=== PATIENT | male | born 1970 | race African-American/Black ===

== ENCOUNTER 2016-05-27 12:25 | Inpatient (IN) | payer OTHER ==
[2016-05-27 17:41] VITALS: BMI 34.9
--- NOTE | 2016-05-27 20:22 | HP ---
CIWA Score - CIWA Score Nausea/Vomitin-No Nausea/No Vomiting Muscle Tremors: 3 Anxiety: 4-Mod. Anxious/Guarded Agitation: 4-Moderately Restless Paroxysmal Sweats: 3 Orientation: 0-Oriented Tacttile Disturbances: 0-None Auditory Disturbances: 0-None Visual Disturbances: 0-None Headache: 2-Mild CIWA-Ar Total Score: 16 Admission ROS BHS - HPI Chief Complaint: C/O WITHDRAWAL SX'S. SEEKING DETOX TXMENT Allergies/Adverse Reactions: Allergies Allergy/AdvReac Type Severity Reaction Status Date / Time aspirin Allergy Severe Swelling Verified 05/27/16 17:52 fish derived Allergy Severe Hives Verified 05/27/16 17:52 History of Present Illness: 45 Y.O. MALE WITH ALCOHOL AND COCAINE DEP. ADMITTED TO DETOX TXMENT. CLIENT IS KNOWN TO [facility]. REPORTS LONGEST CLEAN TIME WAS 14 MONTHS WHILE IN A RESIDENTIAL PROGRAM. DENIES RECENT DETOX/ REHAB SERVICES. Exam Limitations: No Limitations - Ebola screening Have you traveled outside of the country in the last 21 days: No Have you had contact with anyone from an Ebola affected area: No Have you been sick,other than usual withdrawal symptoms: No Do you have a fever: No - Review of Systems Constitutional: Chills, Night Sweats, Changes in sleep, Weight Stable EENT: reports: No Symptoms Reported Respiratory: reports: No Symptoms reported Cardiac: reports: No Symptoms Reported GI: reports: No Symptoms Reported : reports: No Symptoms Reported Musculoskeletal: reports: No Symptoms Reported Integumentary: reports: Dryness Neuro: reports: No Symptoms reported Endocrine: reports: No Symptoms Reported Hematology: reports: No Symptoms Reported Psychiatric: reports: Anxious, Depressed Other Systems: Reviewed and Negative Patient History - Patient Medical History Hx Anemia: No Hx Asthma: No Hx Chronic Obstructive Pulmonary Disease (COPD): No Hx Cancer: No Hx Cardiac Disorders: No Hx Congestive Heart Failure: No Hx Hypertension: No Hx Hypercholesterolemia: No Hx Pacemaker: No HX Cerebrovascular Accident: No Hx Seizures: No Hx Dementia: No Hx Diabetes: No Hx Gastrointestinal Disorders: Yes (acid reflux.) Hx Liver Disease: No Hx Genitourinary Disorders: No Hx Sexually Transmitted Disorders: No Hx Renal Disease (ESRD): No Hx Thyroid Disease: No Hx Human Immunodeficiency Virus (HIV): Yes (ON MEDS) Hx Depression: Yes Hx Suicide Attempt: No Hx Bipolar Disorder: No Hx Schizophrenia: No - Patient Surgical History Past Surgical History: Yes Hx Breast Surgery: Yes (bilateral gynecomastia in 2002) Hx Breast Biopsy: No Hx Abdominal Surgery: No Hx Appendectomy: No Hx Cholecystectomy: No Hx Genitourinary Surgery: No Hx Section: No Hx Orthopedic Surgery: Yes (L hip lipoma removed in 2013) Anesthesia Reaction: No - PPD History Previous Implant?: Yes Documented Results: Negative w/o proof Implanted On Prior [facility] Admission?: Yes Date: 04/01/11 Results: negative PPD to be Administered?: Yes - Smoking Cessation Smoking history: Current every day smoker Have you smoked in the past 12 months: Yes Aproximately how many cigarettes per day: 20 Cigars Per Day: 0 Hx Chewing Tobacco Use: No Initiated information on smoking cessation: Yes 'Breaking Loose' booklet given: 05/27/16 - Substance & Tx. History Hx Alcohol Use: Yes Hx Substance Use: Yes Substance Use Type: Alcohol, Cocaine Hx Substance Use Treatment: Yes ([facility]) - Substances Abused Alcohol Route: Oral Frequency: Daily Amount used: 1/2 pint gin/6 pk beer Age of first use: 18 Date of Last Use: 05/26/16 Crack Route: Smoking Frequency: Daily Amount used: $100 Age of first use: 25 Date of Last Use: 05/26/16 Family Disease History - Family Disease History Family Disease History: CA: Father ( GASTRIC CA/ ALCOHOLISM) Admission Physical Exam BHS - Vital Signs Vital Signs: Vital Signs - 24 hr 05/27/16 17:39 Temperature 98.2 F Pulse Rate 76 Respiratory 18 Rate Blood Pressure 95/61 - Physical General Appearance: Yes: Appropriately Dressed, Anxious HEENTM: Yes: EOMI, Normocephalic, ENID, Pharynx Normal Respiratory: Yes: Chest Non-Tender, Lungs Clear, Normal Breath Sounds, No Respiratory Distress, No Accessory Muscle Use Neck: Yes: No masses,lesions,Nodules, Supple, Trachea in good position Breast: Yes: Breast Exam Deferred Cardiology: Yes: Regular Rhythm, Regular Rate, S1, S2 Abdominal: Yes: Normal Bowel Sounds, Non Tender, Soft Genitourinary: Yes: Within Normal Limits Back: Yes: Normal Inspection Musculoskeletal: Yes: full range of Motion, Gait Steady Extremities: Yes: Normal Capillary Refill, Normal Range of Motion, Non-Tender, Tremors Neurological: Yes: 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, Fully Oriented, Alert, Motor Strength 5/5 Integumentary: Yes: Dry, Warm Lymphatic: Yes: Within Normal Limits - Diagnostic (1) Alcohol dependence with uncomplicated withdrawal Current Visit: Yes Status: Chronic (2) Cocaine dependence, uncomplicated Current Visit: Yes Status: Chronic (3) Cannabis dependence, uncomplicated Current Visit: Yes Status: Chronic (4) GERD (gastroesophageal reflux disease) Current Visit: Yes Status: Chronic Qualifiers: Esophagitis presence: esophagitis presence not specified Qualified Code(s): K21.9 - Gastro-esophageal reflux disease without esophagitis (5) HIV (human immunodeficiency virus infection) Current Visit: Yes Status: Chronic (6) Nicotine dependence Current Visit: Yes Status: Chronic Qualifiers: Nicotine product type: cigarettes Substance use status: uncomplicated Qualified Code(s): F17.210 - Nicotine dependence, cigarettes, uncomplicated Cleared for Admission [facility] - Detox or Rehab [facility] Level of Care: Medically Managed Detox Regimen/Protocol: Librium S Breath Alcohol Content Breath Alcohol Content: 0 Urine Drug Screen - Results Drug Screen Negative: No Urine Drug Screen Results: THC-Marijuana, FABY-Cocaine, MET-Methamphetamine
[2016-05-27] MEDS ORDERED: MAGNESIUM CITRATE 300 ML BOTTLE PO PRN (20:31)
[2016-05-27] MEDS ORDERED: MAGNESIUM HYDROX 2400MG/30ML ORAL SUSPENSION 30 ML CUP PO PRN (20:31)
[2016-05-27] MEDS ORDERED: diphenhydrAMINE HCL 50 MG CAPSULE PO PRN (20:31)
[2016-05-27] MEDS ORDERED: NICOTINE POLACRILEX 2 MG GUM BC PRN (20:31)
[2016-05-27] MEDS ORDERED: LOPERAMIDE HCL 2 MG CAPSULE PO PRN (20:31)
[2016-05-27] MEDS ORDERED: P-EPHED 60MG/TRIPROLIDI 2.5MG TABLET PO PRN (20:31)
[2016-05-27] MEDS ORDERED: MAG HYDROX/AL HYDROX/SIMETH 30 ML UNIT-DOSE CUP PO PRN (20:31)
[2016-05-27] MEDS ORDERED: hydrOXYzine PAMOATE 50 MG CAPSULE (FP) PO PRN (20:31)
[2016-05-27] MEDS ORDERED: guaiFENesin/D-METHORPHAN HB 10 ML UNIT-DOSE CUPS PO PRN (20:31)
[2016-05-27] MEDS ORDERED: ACETAMINOPHEN 325 MG TABLET (FP) PO PRN (20:31)
[2016-05-27] MEDS ORDERED: MENTHOL/PHENOL 1 EACH UD MM PRN (20:31)
[2016-05-27] MEDS ORDERED: chlordiazePOXIDE HCL 25 MG CAPSULE PO PRN (20:31)
[2016-05-27] MEDS: chlordiazePOXIDE HCL 25 MG CAPSULE PO SCH (23:20)
[2016-05-27] MEDS: RANITIDINE HCL 150 MG TABLET (FP) PO SCH (23:20)
[2016-05-27] MEDS: THIAMINE HCL 100 MG TABLET (FP) PO SCH (23:21)
[2016-05-27 23:24] LABS: URINE APPEARANCE CLEAR; URINE BILIRUBIN NEGATIVE (NEGATIVE); URINE BLOOD NEGATIVE (NEGATIVE); URINE COLOR YELLOW; URINE GLUCOSE (UA) NEGATIVE (NEGATIVE); URINE KETONE TRACE (NEGATIVE); URINE LEUK ESTERASE NEGATIVE (NEGATIVE); URINE NITRITE NEGATIVE (NEGATIVE); URINE PROTEIN NEGATIVE (NEGATIVE); URINE UROBILINOGEN NEGATIVE E.U./dl (0.2-1.0)
[2016-05-27] MEDS: NICOTINE 21 MG/24 HOURS TOPICAL PATCH TD SCH (23:40)
[2016-05-28] MEDS: chlordiazePOXIDE HCL 25 MG CAPSULE PO SCH ×4 (05:56→22:22)
[2016-05-28 10:16] LABS: MCHC 33.2 g/dl (32.0-35.9); MEAN CELL VOLUME 90.2 fl (80-96); MEAN PLT VOLUME 8.8 fl (7.5-11.1); PLATELET COUNT 251 K/MM3 (134-434); RDW 14.5 % (11.9-15.9); WHITE BLOOD COUNT 4.7 K/mm3 (4.0-10.0)
[2016-05-28] MEDS: PRENATAL VITAMINS W/ FOLIC ACID TABLET (FP) PO SCH (10:38)
[2016-05-28] MEDS: NICOTINE 21 MG/24 HOURS TOPICAL PATCH TD SCH (10:39)
[2016-05-28 10:50] LABS: ALBUMIN 3.8 g/dl (3.4-5.0); BILIRUBIN,TOTAL 0.5 mg/dL (0.2-1.0); CALCIUM 8.9 mg/dL (8.5-10.1); COCKROFT - GAULT 87.7; CREATININE 1.7 mg/dL (0.7-1.3); TOT PROT 7.4 g/dl (6.4-8.2)
[2016-05-28] MEDS: AMMONIUM LACTATE 12% LOTION 225 GM BOTTLE TP SCH ×2 (11:30→22:26)
[2016-05-28] MEDS: EMTRICITAB/RILPIVIRINE/TENOFOV 1 EACH TABLET PO SCH (12:33)
--- NOTE | 2016-05-28 14:15 | PN ---
[facility] CIWA - CIWA Score Nausea/Vomitin-Mild Nausea/No Vomiting Muscle Tremors: 4-Moderate,w/Arms Extend Anxiety: 4-Mod. Anxious/Guarded Agitation: 1-Slight > Activity Paroxysmal Sweats: 3 Orientation: 0-Oriented Tacttile Disturbances: 2-Mild Itch/Numbness/Burn Auditory Disturbances: 2-Mild Harshness/Frighten Visual Disturbances: 0-None Headache: 0-None Present CIWA-Ar Total Score: 17 [facility] Progress Note (SOAP) Subjective: Tremors, Anxious, Yawning, Diarrhea, Interrupted sleep. Objective: PT. A & O X 3, OBSERVED AMBULATING ON UNIT. 05/28/16 14:13 Vital Signs Temperature 97.6 F 05/28/16 14:08 Pulse Rate 70 05/28/16 14:08 Respiratory Rate 20 05/28/16 14:08 Blood Pressure 93/44 05/28/16 14:08 O2 Sat by Pulse Oximetry (%) Laboratory Last Values WBC 4.7 K/mm3 (4.0-10.0) 05/28/16 06:00 RBC 4.84 M/mm3 (4.00-5.60) 05/28/16 06:00 Hgb 14.5 GM/dL (11.7-16.9) 05/28/16 06:00 Hct 43.7 % (35.4-49) 05/28/16 06:00 MCV 90.2 fl (80-96) 05/28/16 06:00 MCHC 33.2 g/dl (32.0-35.9) 05/28/16 06:00 RDW 14.5 % (11.9-15.9) 05/28/16 06:00 Plt Count 251 K/MM3 (134-434) D 05/28/16 06:00 MPV 8.8 fl (7.5-11.1) 05/28/16 06:00 Sodium 142 mmol/L (136-145) 05/28/16 06:00 Potassium 3.8 mmol/L (3.5-5.1) 05/28/16 06:00 Chloride 107 mmol/L (98-107) 05/28/16 06:00 Carbon Dioxide 25 mmol/L (21-32) 05/28/16 06:00 Anion Gap 10 (8-16) 05/28/16 06:00 BUN 14 mg/dL (7-18) 05/28/16 06:00 Creatinine 1.7 mg/dL (0.7-1.3) H D 05/28/16 06:00 Creat Clearance w eGFR 44.21 (>60) 05/28/16 06:00 Random Glucose 87 mg/dL (74-106) 05/28/16 06:00 Calcium 8.9 mg/dL (8.5-10.1) 05/28/16 06:00 Total Bilirubin 0.5 mg/dL (0.2-1.0) 05/28/16 06:00 AST 16 U/L (15-37) D 05/28/16 06:00 ALT 19 U/L (12-78) D 05/28/16 06:00 Alkaline Phosphatase 73 U/L (45-117) 05/28/16 06:00 Total Protein 7.4 g/dl (6.4-8.2) 05/28/16 06:00 Albumin 3.8 g/dl (3.4-5.0) 05/28/16 06:00 Urine Color Yellow 05/27/16 21:59 Urine Appearance Clear 05/27/16 21:59 Urine pH 5.0 (5.0-8.0) 05/27/16 21:59 Ur Specific [place] 1.034 (1.001-1.035) 05/27/16 21:59 Urine Protein Negative (NEGATIVE) 05/27/16 21:59 Urine Glucose (UA) Negative (NEGATIVE) 05/27/16 21:59 Urine Ketones Trace (NEGATIVE) H 05/27/16 21:59 Urine Blood Negative (NEGATIVE) 05/27/16 21:59 Urine Nitrite Negative (NEGATIVE) 05/27/16 21:59 Urine Bilirubin Negative (NEGATIVE) 05/27/16 21:59 Urine Urobilinogen Negative E.U./dl (0.2-1.0) 05/27/16 21:59 Ur Leukocyte Esterase Negative (NEGATIVE) 05/27/16 21:59 LABS NOTED. Assessment: 05/28/16 14:14 WITHDRAWAL SYMPTOMS. Plan: CONTINUE DETOX. INCREASE PO FLUIDS. ADVISED PATIENT TO FOLLOW-UP WITH [facility] / REHAB MEDICAL PROVIDER AFTER DISCHARGE FROM DETOX FOR GENERAL MEDICAL ASSESSMENT AND ANY ABNORMAL ADMISSION LAB VALUES.
--- NOTE | 2016-05-28 16:13 | EKG ---
Test Reason : Blood Pressure : / mmHG Vent. Rate : 063 BPM Atrial Rate : 063 BPM P-R Int : 146 ms QRS Dur : 084 ms QT Int : 414 ms P-R-T Axes : 042 067 042 degrees QTc Int : 423 ms NORMAL SINUS RHYTHM CANNOT RULE OUT ANTERIOR INFARCT , AGE UNDETERMINED ABNORMAL ECG NO PREVIOUS ECGS AVAILABLE Confirmed by HEATHER PRADHAN, WELLINGTON ([id number]) on 05/28/2016 4:13:19 PM Referred By: Shahid Garber Confirmed By:WELLINGTON ROMERO MD
--- NOTE | 2016-05-28 16:33 | CONSULT ---
[facility] Psychiatric Consult - Data Date of interview: 05/28/16 Admission source: [facility] Identifying data: First admission to [facility] for this 45 y/o male seeking detox for alcohol and cocaine depenednce (tox screen is positive for cannabis and amphetamines).Patient is single without children,domiciled,unemployed and supported on Public Assistance. Substance Abuse History: Urine Drug Screen Results: FABY-Cocaine, OPI-Opiates, BZO-Benzodiazepines, MTD-Methadone, TCA-Tricyclic Antidepressant.Noted. - Smoking Cessation. Smoking history: Current every day smoker. Have you smoked in the past 12 months: Yes. Aproximately how many cigarettes per day: 20. Cigars Per Day: 0. Hx Chewing Tobacco Use: No. Initiated information on smoking cessation: Yes. 'Breaking Loose' booklet given: 05/27/16. - Substance & Tx. History. Hx Alcohol Use: Yes. Hx Substance Use: Yes. Substance Use Type : Alcohol, Cocaine. Hx Substance Use Treatment: Yes ([facility]). - Substances Abused. Alcohol. Route: Oral. Frequency: Daily. Amount used: 1 /2 pint gin/6 pk beer. Age of first use: 18. Date of Last Use: 05/26/16. Crack. Route: Smoking. Frequency: Daily. Amount used: $100. Age of first use : 25. Date of Last Use: 05/26/16. Confirmed by patient. Medical History: GERD and HIV infection. Psychiatric History: Diagnosed with MDD in 1998 at [facility].Prescribed vistaril 50 mg/hs + lexapro 20 mg/day + trazodone 50 mg/ hs.Mr Jennings gets outpatient psychiatric services at the [facility] in the [place].Patient denies history of suicide attempts. Physical/Sexual Abuse/Trauma History: No history. Additional Comment: Urine Drug Screen Results: THC-Marijuana, FABY-Cocaine, MET- Methamphetamine.Noted. Mental Status Exam - Mental Status Exam Alert and Oriented to: Time, Place, Person Cognitive Function: Good Patient Appearance: Well Groomed Mood: Hopeful, Euthymic Affect: Appropriate, Normal Range Patient Behavior: Appropriate, Cooperative Speech Pattern: Clear, Appropriate Voice Loudness: Normal Thought Process: Intact, Goal Oriented Thought Disorder: Not Present Hallucinations: Denies Suicidal Ideation: Denies Homicidal Ideation: Denies Insight/Judgement: Poor Appetite: Good Muscle strength/Tone: Normal Gait/Station: Normal Psychiatric Findings - Problem List (Doyle 1, 2,3) (1) Alcohol dependence with uncomplicated withdrawal Current Visit: Yes Status: Acute (2) Cannabis dependence, uncomplicated Current Visit: Yes Status: Acute (3) Cocaine dependence, uncomplicated Current Visit: Yes Status: Acute (4) Nicotine dependence Current Visit: Yes Status: Acute Qualifiers: Nicotine product type: cigarettes Substance use status: uncomplicated Qualified Code(s): F17.210 - Nicotine dependence, cigarettes, uncomplicated (5) Amphetamine abuse Current Visit: Yes Status: Acute (6) Substance induced mood disorder Current Visit: Yes Status: Acute (7) MDD (major depressive disorder) Current Visit: Yes Status: Chronic Comment: Self-report. - Initial Treatment Plan Initial Treatment Plan: Psychoeducation.Detoxification.Medications : vistaril 50 mg po hs + trazodone 50 mg po hs + lexapro 20 mg po daily.Side effects/ benefits discussed with patient,including the risk for priapism (trazodone).Mr Jennings is advised to watch for abnormal erectile phenomena (painful/prolonged erection) and stop trazodone/seek immediate medical assistance.Patient is in agreement with this careplan.Observation.
[2016-05-28] MEDS: hydrOXYzine PAMOATE 50 MG CAPSULE (FP) PO SCH (22:21)
[2016-05-28] MEDS: traZODone HCL 50 MG TABLET (FP) PO SCH (22:21)
[2016-05-28] MEDS: RANITIDINE HCL 150 MG TABLET (FP) PO SCH (22:21)
[2016-05-28] MEDS: THIAMINE HCL 100 MG TABLET (FP) PO SCH (22:21)
[2016-05-29] MEDS: chlordiazePOXIDE HCL 25 MG CAPSULE PO SCH ×3 (05:59→18:05)
[2016-05-29] MEDS: EMTRICITAB/RILPIVIRINE/TENOFOV 1 EACH TABLET PO SCH (10:17)
[2016-05-29] MEDS: NICOTINE 21 MG/24 HOURS TOPICAL PATCH TD SCH (10:17)
[2016-05-29] MEDS: ESCITALOPRAM OXALATE 20 MG TABLET (FP) PO SCH (10:17)
[2016-05-29] MEDS: PRENATAL VITAMINS W/ FOLIC ACID TABLET (FP) PO SCH (10:17)
[2016-05-29] MEDS: AMMONIUM LACTATE 12% LOTION 225 GM BOTTLE TP SCH ×2 (10:20→22:24)
--- NOTE | 2016-05-29 13:46 | PN ---
S CIWA - CIWA Score Nausea/Vomitin Muscle Tremors: 4-Moderate,w/Arms Extend Anxiety: 4-Mod. Anxious/Guarded Agitation: 2 Paroxysmal Sweats: No Perspiration Orientation: 0-Oriented Tacttile Disturbances: 1-Very Mild Itch/Numbness Auditory Disturbances: 0-None Visual Disturbances: 0-None Headache: 2-Mild CIWA-Ar Total Score: 16 [facility] Progress Note (SOAP) Subjective: Anxious, restless, sweating, tremor, interrupted sleep Objective: 05/29/16 13:40 Last Vital Signs Temp Pulse Resp BP Pulse Ox 97.3 F L 83 18 112/68 05/29/16 10:00 05/29/16 10:00 05/29/16 10:00 05/29/16 10:00 Laboratory Tests 05/27/16 05/28/16 05/28/16 21:59 06:00 06:00 WBC 4.7 RBC 4.84 Hgb 14.5 Hct 43.7 MCV 90.2 MCHC 33.2 RDW 14.5 Plt Count 251 D MPV 8.8 Sodium 142 Potassium 3.8 Chloride 107 Carbon Dioxide 25 Anion Gap 10 BUN 14 Creatinine 1.7 H D Creat Clearance w eGFR 44.21 Random Glucose 87 Calcium 8.9 Total Bilirubin 0.5 AST 16 D ALT 19 D Alkaline Phosphatase 73 Total Protein 7.4 Albumin 3.8 Urine Color Yellow Urine Appearance Clear Urine pH 5.0 Ur Specific [place] 1.034 Urine Protein Negative Urine Glucose (UA) Negative Urine Ketones Trace H Urine Blood Negative Urine Nitrite Negative Urine Bilirubin Negative Urine Urobilinogen Negative Ur Leukocyte Esterase Negative RPR Titer 05/28/16 06:00 WBC RBC Hgb Hct MCV MCHC RDW Plt Count MPV Sodium Potassium Chloride Carbon Dioxide Anion Gap BUN Creatinine Creat Clearance w eGFR Random Glucose Calcium Total Bilirubin AST ALT Alkaline Phosphatase Total Protein Albumin Urine Color Urine Appearance Urine pH Ur Specific [place] Urine Protein Urine Glucose (UA) Urine Ketones Urine Blood Urine Nitrite Urine Bilirubin Urine Urobilinogen Ur Leukocyte Esterase RPR Titer Nonreactive Labs noted: serum creatinine 1.7, GFR 44.21, BUN 14 Assessment: 05/29/16 13:43 Withdrawal symptoms Noted with MELANIE most likely secondary to dehydration Plan: Continue detox MELANIE secondary to dehydration: encouraged to drink lots of water, give water pitcher, repeat BMP in AM Patient requesting inpatient rehab post detox
[2016-05-29] MEDS: MAG HYDROX/AL HYDROX/SIMETH 30 ML UNIT-DOSE CUP PO PRN (19:12)
[2016-05-29] MEDS: traZODone HCL 50 MG TABLET (FP) PO SCH (22:23)
[2016-05-29] MEDS: THIAMINE HCL 100 MG TABLET (FP) PO SCH (22:23)
[2016-05-29] MEDS: RANITIDINE HCL 150 MG TABLET (FP) PO SCH (22:24)
[2016-05-29] MEDS: chlordiazePOXIDE 5 MG CAPSULE PO SCH (22:24)
[2016-05-29] MEDS: hydrOXYzine PAMOATE 50 MG CAPSULE (FP) PO SCH (22:24)
[2016-05-30] MEDS: chlordiazePOXIDE 5 MG CAPSULE PO SCH ×3 (05:33→17:37)
[2016-05-30 10:11] LABS: COCKROFT - GAULT 106.5; CREATININE 1.4 mg/dL (0.7-1.3)
[2016-05-30 10:14] LABS: CALCIUM 9.8 mg/dL (8.5-10.1)
--- NOTE | 2016-05-30 10:16 | PN ---
S Progress Note (SOAP) Subjective: ALERT,IRRITABLE,ANXIOUS,INTERRUPTED SLEEP, Objective: 05/30/16 10:15 Vital Signs Temperature 95.5 F L 05/30/16 09:40 Pulse Rate 86 05/30/16 09:40 Respiratory Rate 18 05/30/16 09:40 Blood Pressure 126/90 05/30/16 09:40 O2 Sat by Pulse Oximetry (%) Assessment: 05/30/16 10:15 WITHDRAWAL SYMPTOM Plan: CONTINUE DETOX,ENCOURAGE ORAL FLUID,REPEAT BMP PENDING,DISCHARGE IN AM
[2016-05-30] MEDS: EMTRICITAB/RILPIVIRINE/TENOFOV 1 EACH TABLET PO SCH (10:17)
[2016-05-30] MEDS: ESCITALOPRAM OXALATE 20 MG TABLET (FP) PO SCH (10:17)
[2016-05-30] MEDS: PRENATAL VITAMINS W/ FOLIC ACID TABLET (FP) PO SCH (10:17)
[2016-05-30] MEDS: NICOTINE 21 MG/24 HOURS TOPICAL PATCH TD SCH (10:18)
[2016-05-30] MEDS: AMMONIUM LACTATE 12% LOTION 225 GM BOTTLE TP SCH ×2 (10:20→23:37)
[2016-05-30] MEDS: MAG HYDROX/AL HYDROX/SIMETH 30 ML UNIT-DOSE CUP PO PRN (15:18)
[2016-05-30] MEDS ORDERED: hydrOXYzine PAMOATE 50 MG CAPSULE (FP) PO PRN (21:57)
[2016-05-30] MEDS ORDERED: traZODone HCL 50 MG TABLET (FP) PO SCH (22:00)
[2016-05-30] MEDS ORDERED: RANITIDINE HCL 150 MG TABLET (FP) PO SCH (22:00)
[2016-05-30] MEDS ORDERED: THIAMINE HCL 100 MG TABLET (FP) PO SCH (22:00)
[2016-05-30] MEDS: hydrOXYzine PAMOATE 50 MG CAPSULE (FP) PO SCH (22:18)
[2016-05-30] MEDS ORDERED: chlordiazePOXIDE HCL 10 MG CAPSULE PO SCH (23:00)
[2016-05-31] MEDS: chlordiazePOXIDE HCL 10 MG CAPSULE PO SCH ×3 (05:22→10:26)
--- NOTE | 2016-05-31 07:58 | PN ---
S Progress Note (SOAP) Subjective: ALERT,NO COMPLAINT Objective: 05/31/16 07:56 Vital Signs Temperature 98.1 F 05/31/16 06:00 Pulse Rate 81 05/31/16 06:00 Respiratory Rate 18 05/31/16 06:00 Blood Pressure 106/62 05/31/16 06:00 O2 Sat by Pulse Oximetry (%) Assessment: 05/31/16 07:56 DETOX COMPLETED,NO WITHDRAWAL SYMPTOM Plan: DISCHARGE TODAY,FOLLOW UP WITH AFTER CARE PROGRAM ARRANGEMENT
--- NOTE | 2016-05-31 08:03 | DS ---
[facility] Detox Discharge Summary Admission Date: 05/27/16 Discharge Date: 05/31/16 - History Present History: Alcohol Dependence, Cannabis Dependence, Cocaine Dependence Additional Comments: FOLLOW UP WITH AFTER [facility] PROGRAM ARRANGEMENT AND PMD FOR MEDIAL PROBLEM Pertinent Past History: GERD HIV NICOTINE DEPENDENCE DEPRESSION - Physical Exam Results Vital Signs: Vital Signs Temperature 98.1 F 05/31/16 06:00 Pulse Rate 81 05/31/16 06:00 Respiratory Rate 18 05/31/16 06:00 Blood Pressure 106/62 05/31/16 06:00 O2 Sat by Pulse Oximetry (%) Pertinent Admission Physical Exam Findings: WITHDRAWAL SYMPTOM - Treatment Hospital Course: Detox Protocol Followed, Detoxed Safely, Responded well, Discharged Condition Good, Rehab Referral Accepted Patient has Accepted a Rehab Referral to: [facility] - Medication Discharge Medications: Ambulatory Orders Emtricitab/Rilpivirine/Tenofov [Complera -] 1 each PO DAILY 05/27/16 Escitalopram Oxalate [Lexapro -] 20 mg PO DAILY 05/27/16 Hydroxyzine Pamoate [Vistaril -] 50 mg PO HS 05/27/16 Multivitamin [Poly-Vitamin] 1 each PO DAILY 05/27/16 Ranitidine [Zantac -] 300 mg PO HS 05/27/16 Trazodone HCl [Desyrel -] 50 mg PO HS 05/27/16 Escitalopram Oxalate [Lexapro -] 20 mg PO DAILY #30 tablet 05/28/16 Hydroxyzine Pamoate [Vistaril -] 50 mg PO HS #30 capsule 05/28/16 Trazodone HCl [Desyrel -] 50 mg PO HS #30 tablet 05/28/16 - Diagnosis (1) Alcohol dependence with uncomplicated withdrawal Current Visit: Yes Status: Acute (2) Cannabis dependence, uncomplicated Current Visit: Yes Status: Acute (3) Cocaine dependence, uncomplicated Current Visit: Yes Status: Acute (4) Nicotine dependence Current Visit: Yes Status: Acute Qualifiers: Nicotine product type: cigarettes Substance use status: uncomplicated Qualified Code(s): F17.210 - Nicotine dependence, cigarettes, uncomplicated (5) GERD (gastroesophageal reflux disease) Current Visit: Yes Status: Chronic Qualifiers: Esophagitis presence: esophagitis presence not specified Qualified Code(s): K21.9 - Gastro-esophageal reflux disease without esophagitis (6) HIV (human immunodeficiency virus infection) Current Visit: Yes Status: Chronic (7) MDD (major depressive disorder) Current Visit: Yes Status: Chronic - AMA Did Patient Leave Against Medical Advice: No
[2016-05-31 09:41] VITALS: BP 118/67; PULSE 92; TEMP 96.1
[2016-05-31] MEDS ORDERED: ESCITALOPRAM OXALATE 20 MG TABLET (FP) PO SCH (10:00)
[2016-05-31] MEDS: EMTRICITAB/RILPIVIRINE/TENOFOV 1 EACH TABLET PO SCH (10:25)
[2016-05-31] MEDS: PRENATAL VITAMINS W/ FOLIC ACID TABLET (FP) PO SCH (10:25)
[2016-05-31] MEDS: AMMONIUM LACTATE 12% LOTION 225 GM BOTTLE TP SCH (10:25)
[2016-05-31] MEDS: NICOTINE 21 MG/24 HOURS TOPICAL PATCH TD SCH (10:26)
== END 2016-05-31 12:35 | disposition other institution (70) | DRG 774 ==
LOC: YASAS 12:25 → Y6N 19:26 → UNDODISIN 05-30 15:50
PROVIDERS: ADMIT Internal Medicine; ATTEND Internal Medicine
PROC: HZ2ZZZZ Detoxification Services for Substance Abuse Treatment (ICD-10-PCS; principal; 2016-05-31)
DX: F10.230 Alcohol dependence with withdrawal, uncomplicated (principal); F14.20 Cocaine dependence, uncomplicated; F12.20 Cannabis dependence, uncomplicated; F17.210 Nicotine dependence, cigarettes, uncomplicated; F15.10 Other stimulant abuse, uncomplicated; F33.9 Major depressive disorder, recurrent, unspecified; F19.24 Other psychoactive substance dependence with psychoactive substance-induced mood disorder; Z21 Asymptomatic human immunodeficiency virus [HIV] infection status; K21.9 Gastro-esophageal reflux disease without esophagitis
CPT/HCPCS: 36415; 80048; 80053; 81003; 85027; 86593; 93005; 93010

== ENCOUNTER 2016-05-31 13:36 | Inpatient (IN) | payer OTHER ==
--- NOTE | 2016-05-31 17:35 | HP ---
[facility] Rehab Assess/Revision - Admission History Admitted to Rehab from: [facility] Date of Admission to Rehab: 05/31/16 - Vital signs Vital Signs: Vital Signs Period Temp Pulse Resp BP Sys/Ell[place] Pulse Ox Last 24 Hr 97.9 F 85 18 114/69 - Findings Detox History & Physical reviewed: Yes Concur with findings: Yes Comments/Additional Findings: transferred from detox to rehab admission as per protocol
[2016-05-31] MEDS ORDERED: MAGNESIUM CITRATE 300 ML BOTTLE PO PRN (18:08)
[2016-05-31] MEDS ORDERED: MENTHOL/PHENOL 1 EACH UD MM PRN (18:08)
[2016-05-31] MEDS ORDERED: IBUPROFEN 400 MG TABLET (FP) PO PRN (18:08)
[2016-05-31] MEDS ORDERED: NICOTINE POLACRILEX 2 MG GUM BUC PRN (18:08)
[2016-05-31] MEDS ORDERED: diphenhydrAMINE HCL 50 MG CAPSULE PO PRN (18:08)
[2016-05-31] MEDS ORDERED: LOPERAMIDE HCL 2 MG CAPSULE PO PRN (18:08)
[2016-05-31] MEDS ORDERED: P-EPHED 60MG/TRIPROLIDI 2.5MG TABLET PO PRN (18:08)
[2016-05-31] MEDS ORDERED: MAGNESIUM HYDROX 2400MG/30ML ORAL SUSPENSION 30 ML CUP PO PRN (18:08)
[2016-05-31] MEDS: MAG HYDROX/AL HYDROX/SIMETH 30 ML UNIT-DOSE CUP PO PRN (18:27)
[2016-05-31] MEDS ORDERED: NICOTINE 14 MG/24 HOURS TOPICAL PATCH TD PRN (18:30)
[2016-05-31] MEDS: THIAMINE HCL 100 MG TABLET (FP) PO SCH (21:13)
[2016-05-31] MEDS: traZODone HCL 50 MG TABLET (FP) PO SCH (21:13)
[2016-05-31] MEDS: RANITIDINE HCL 150 MG TABLET (FP) PO SCH (21:54)
[2016-06-01] MEDS: ESCITALOPRAM OXALATE 20 MG TABLET (FP) PO SCH (09:52)
[2016-06-01] MEDS: PRENATAL VITAMINS W/ FOLIC ACID TABLET (FP) PO SCH (09:52)
[2016-06-01] MEDS: EMTRICITAB/RILPIVIRINE/TENOFOV 1 EACH TABLET PO SCH (09:53)
[2016-06-01] MEDS ORDERED: hydrOXYzine PAMOATE 50 MG CAPSULE (FP) PO PRN (11:43)
--- NOTE | 2016-06-01 11:49 | HP ---
Psychiatrist Admission - Data Date of interview: 06/01/16 Admission source: [facility] Identifying data: This is the third [facility] inpatient rehabilitation admission for this 45 year old single male without children, he is domiciled, and unemployed and supported on HASA/Public Assistance. Medical History: HIV+ since 1998, GERD. Smokes cigarettes 1 PPD. Psychiatric History: Reports carries a diagnosis of MDD, first psychiatric hospitalization in 1998 to [facility] in [place] to address depression, reports admitted for 14 days, treated with paxil which was changed to welllbutrin due to the side effects. Reports was admitted to [facility] most recently to [facility] for 2 weeks to address depression, reports he was drinking and using drugs and not taking his medications. He currently on the following medications: vistaril 50 mg/hs, lexapro 20 mg/day and trazodone 50 mg/hs. Patient reports gets outpatient psychiatric services at the [facility] in the [place] and sees the psychiatrist . Physical/Sexual Abuse/Trauma History: Denies history of sexual, physical and verbal abuse. Vital Signs: Vital Signs - 24 hr 05/31/16 06/01/16 06/01/16 13:30 00:31 03:30 Temperature 97.9 F Pulse Rate 85 Respiratory 18 18 18 Rate Blood Pressure 114/69 06/01/16 07:32 Temperature 97.8 F Pulse Rate 74 Respiratory 18 Rate Blood Pressure 141/74 Allergies/Adverse Reactions: Allergies Allergy/AdvReac Type Severity Reaction Status Date / Time aspirin Allergy Severe Swelling Verified 05/27/16 17:52 fish derived Allergy Severe Hives Verified 05/27/16 17:52 Date of last physical exam: 05/27/16 Concur with the findings of this exam: Yes - Substance Abuse/Tx History Hx Alcohol Use: Yes (6 pck beer daily, 1/2 gin daily) Hx Substance Use: Yes Substance Use Type: Cocaine ($50 daily ), Marijuana ("sometimes") Hx Substance Use Treatment: Yes ([facility] in [place] 9 months) - Admission Criteria Previous failed treatment: Yes Poor recovery environment: Yes Comorbidities: Yes Lacks judgement: Yes Mental Status Exam - Mental Status Exam Alert and Oriented to: Time, Place, Person Cognitive Function: Good Patient Appearance: Well Groomed Mood: Hopeful Affect: Appropriate, Mood Congruent Patient Behavior: Appropriate, Cooperative Speech Pattern: Clear, Appropriate Voice Loudness: Normal Thought Process: Intact, Goal Oriented Thought Disorder: Not Present Hallucinations: Denies Suicidal Ideation: Denies Homicidal Ideation: Denies Insight/Judgement: Fair Sleep: Fair Appetite: Fair Muscle strength/Tone: Normal Gait/Station: Normal Psychiatric Findings - Problem List ([place]era 1, 2,3) (1) Alcohol dependence Current Visit: Yes Status: Acute (2) Cannabis dependence, uncomplicated Current Visit: Yes Status: Acute (3) Nicotine dependence Current Visit: Yes Status: Acute Qualifiers: Nicotine product type: cigarettes Substance use status: uncomplicated Qualified Code(s): F17.210 - Nicotine dependence, cigarettes, uncomplicated (4) HIV (human immunodeficiency virus infection) Current Visit: Yes Status: Chronic (5) MDD (major depressive disorder) Current Visit: Yes Status: Chronic Comment: Self-report. - Initial Treatment Plan Initial Treatment Plan: Will continue his current medications, monitor progress as needed.
[2016-06-01] MEDS: hydrOXYzine PAMOATE 50 MG CAPSULE (FP) PO SCH (21:45)
[2016-06-01] MEDS: traZODone HCL 50 MG TABLET (FP) PO SCH (21:45)
[2016-06-01] MEDS: RANITIDINE HCL 150 MG TABLET (FP) PO SCH (21:45)
[2016-06-01] MEDS: THIAMINE HCL 100 MG TABLET (FP) PO SCH (21:45)
[2016-06-02] MEDS: EMTRICITAB/RILPIVIRINE/TENOFOV 1 EACH TABLET PO SCH (10:00)
[2016-06-02] MEDS: PRENATAL VITAMINS W/ FOLIC ACID TABLET (FP) PO SCH (10:00)
[2016-06-02] MEDS: ESCITALOPRAM OXALATE 20 MG TABLET (FP) PO SCH (10:00)
[2016-06-02] MEDS: MAG HYDROX/AL HYDROX/SIMETH 30 ML UNIT-DOSE CUP PO PRN (18:30)
[2016-06-02] MEDS: THIAMINE HCL 100 MG TABLET (FP) PO SCH (21:50)
[2016-06-02] MEDS: traZODone HCL 50 MG TABLET (FP) PO SCH (21:50)
[2016-06-02] MEDS: RANITIDINE HCL 150 MG TABLET (FP) PO SCH (21:50)
[2016-06-02] MEDS: hydrOXYzine PAMOATE 50 MG CAPSULE (FP) PO SCH (21:50)
[2016-06-02] MEDS: TOLNAFTATE 1% CREAM 15 GM TUBE TP SCH (21:52)
[2016-06-02] MEDS: AMMONIUM LACTATE 12% LOTION 225 GM BOTTLE TP PRN (22:06)
[2016-06-03] MEDS: ACETAMINOPHEN 325 MG TABLET (FP) PO PRN (06:22)
[2016-06-03] MEDS: COLLOIDAL OATMEAL 1 BAR EACH TP PRN (06:22)
[2016-06-03] MEDS: EMTRICITAB/RILPIVIRINE/TENOFOV 1 EACH TABLET PO SCH (09:46)
[2016-06-03] MEDS: PRENATAL VITAMINS W/ FOLIC ACID TABLET (FP) PO SCH (09:46)
[2016-06-03] MEDS: ESCITALOPRAM OXALATE 20 MG TABLET (FP) PO SCH (09:46)
[2016-06-03] MEDS: TOLNAFTATE 1% CREAM 15 GM TUBE TP SCH ×2 (09:47→21:15)
[2016-06-03 12:14] LABS: HIV 1 AGp24 NEGATIVE
[2016-06-03 12:17] LABS: HIV 1 & 2 AB PRELIMINARY POSITIVE
[2016-06-03] MEDS: THIAMINE HCL 100 MG TABLET (FP) PO SCH (21:14)
[2016-06-03] MEDS: hydrOXYzine PAMOATE 50 MG CAPSULE (FP) PO SCH (21:15)
[2016-06-03] MEDS: traZODone HCL 50 MG TABLET (FP) PO SCH (21:15)
[2016-06-03] MEDS: RANITIDINE HCL 150 MG TABLET (FP) PO SCH (21:15)
[2016-06-04] MEDS: ESCITALOPRAM OXALATE 20 MG TABLET (FP) PO SCH (10:33)
[2016-06-04] MEDS: EMTRICITAB/RILPIVIRINE/TENOFOV 1 EACH TABLET PO SCH (10:33)
[2016-06-04] MEDS: ACETAMINOPHEN 325 MG TABLET (FP) PO PRN (10:33)
[2016-06-04] MEDS: PRENATAL VITAMINS W/ FOLIC ACID TABLET (FP) PO SCH (10:33)
[2016-06-04] MEDS: TOLNAFTATE 1% CREAM 15 GM TUBE TP SCH ×2 (10:34→21:40)
[2016-06-04] MEDS: RANITIDINE HCL 150 MG TABLET (FP) PO SCH (21:39)
[2016-06-04] MEDS: traZODone HCL 50 MG TABLET (FP) PO SCH (21:39)
[2016-06-04] MEDS: hydrOXYzine PAMOATE 50 MG CAPSULE (FP) PO SCH (21:39)
[2016-06-04] MEDS: THIAMINE HCL 100 MG TABLET (FP) PO SCH (21:39)
[2016-06-05] MEDS: PRENATAL VITAMINS W/ FOLIC ACID TABLET (FP) PO SCH (10:39)
[2016-06-05] MEDS: EMTRICITAB/RILPIVIRINE/TENOFOV 1 EACH TABLET PO SCH (10:39)
[2016-06-05] MEDS: ESCITALOPRAM OXALATE 20 MG TABLET (FP) PO SCH (10:39)
[2016-06-05] MEDS: TOLNAFTATE 1% CREAM 15 GM TUBE TP SCH ×2 (10:40→21:14)
[2016-06-05] MEDS: THIAMINE HCL 100 MG TABLET (FP) PO SCH (21:12)
[2016-06-05] MEDS: hydrOXYzine PAMOATE 50 MG CAPSULE (FP) PO SCH (21:12)
[2016-06-05] MEDS: RANITIDINE HCL 150 MG TABLET (FP) PO SCH (21:12)
[2016-06-05] MEDS: MAG HYDROX/AL HYDROX/SIMETH 30 ML UNIT-DOSE CUP PO PRN (21:13)
[2016-06-05] MEDS: traZODone HCL 50 MG TABLET (FP) PO SCH (21:13)
[2016-06-06] MEDS: COLLOIDAL OATMEAL 1 BAR EACH TP PRN (07:26)
[2016-06-06] MEDS: ESCITALOPRAM OXALATE 20 MG TABLET (FP) PO SCH (10:56)
[2016-06-06] MEDS: EMTRICITAB/RILPIVIRINE/TENOFOV 1 EACH TABLET PO SCH (10:56)
[2016-06-06] MEDS: PRENATAL VITAMINS W/ FOLIC ACID TABLET (FP) PO SCH (10:56)
[2016-06-06] MEDS: TOLNAFTATE 1% CREAM 15 GM TUBE TP SCH ×2 (10:56→23:26)
[2016-06-06] MEDS: THIAMINE HCL 100 MG TABLET (FP) PO SCH (21:46)
[2016-06-06] MEDS: traZODone HCL 50 MG TABLET (FP) PO SCH (21:46)
[2016-06-06] MEDS: hydrOXYzine PAMOATE 50 MG CAPSULE (FP) PO SCH (21:46)
[2016-06-06] MEDS: RANITIDINE HCL 150 MG TABLET (FP) PO SCH (21:46)
[2016-06-07] MEDS: PRENATAL VITAMINS W/ FOLIC ACID TABLET (FP) PO SCH (09:55)
[2016-06-07] MEDS: EMTRICITAB/RILPIVIRINE/TENOFOV 1 EACH TABLET PO SCH (09:55)
[2016-06-07] MEDS: TOLNAFTATE 1% CREAM 15 GM TUBE TP SCH ×2 (09:56→21:13)
[2016-06-07] MEDS: ESCITALOPRAM OXALATE 20 MG TABLET (FP) PO SCH (09:56)
[2016-06-07] MEDS: MAG HYDROX/AL HYDROX/SIMETH 30 ML UNIT-DOSE CUP PO PRN (18:06)
[2016-06-07] MEDS: ACETAMINOPHEN 325 MG TABLET (FP) PO PRN (18:06)
[2016-06-07] MEDS: THIAMINE HCL 100 MG TABLET (FP) PO SCH (21:12)
[2016-06-07] MEDS: guaiFENesin/D-METHORPHAN HB 10 ML UNIT-DOSE CUPS PO PRN (21:12)
[2016-06-07] MEDS: traZODone HCL 50 MG TABLET (FP) PO SCH (21:13)
[2016-06-07] MEDS: RANITIDINE HCL 150 MG TABLET (FP) PO SCH (21:13)
[2016-06-07] MEDS: hydrOXYzine PAMOATE 50 MG CAPSULE (FP) PO SCH (21:13)
[2016-06-08] MEDS: guaiFENesin/D-METHORPHAN HB 10 ML UNIT-DOSE CUPS PO PRN ×3 (07:29→21:40)
[2016-06-08] MEDS: ESCITALOPRAM OXALATE 20 MG TABLET (FP) PO SCH (10:01)
[2016-06-08] MEDS: EMTRICITAB/RILPIVIRINE/TENOFOV 1 EACH TABLET PO SCH (10:01)
[2016-06-08] MEDS: PRENATAL VITAMINS W/ FOLIC ACID TABLET (FP) PO SCH (10:01)
[2016-06-08] MEDS: TOLNAFTATE 1% CREAM 15 GM TUBE TP SCH ×2 (10:02→21:40)
[2016-06-08] MEDS: ACETAMINOPHEN 325 MG TABLET (FP) PO PRN ×2 (10:02→17:30)
[2016-06-08] MEDS: AMMONIUM LACTATE 12% LOTION 225 GM BOTTLE TP PRN (17:05)
[2016-06-08] MEDS: RANITIDINE HCL 150 MG TABLET (FP) PO SCH (21:39)
[2016-06-08] MEDS: hydrOXYzine PAMOATE 50 MG CAPSULE (FP) PO SCH (21:39)
[2016-06-08] MEDS: traZODone HCL 50 MG TABLET (FP) PO SCH (21:39)
[2016-06-08] MEDS: THIAMINE HCL 100 MG TABLET (FP) PO SCH (21:40)
[2016-06-09] MEDS: guaiFENesin/D-METHORPHAN HB 10 ML UNIT-DOSE CUPS PO PRN ×2 (06:21→16:35)
[2016-06-09] MEDS: ACETAMINOPHEN 325 MG TABLET (FP) PO PRN ×2 (06:21→16:35)
[2016-06-09] MEDS: EMTRICITAB/RILPIVIRINE/TENOFOV 1 EACH TABLET PO SCH (09:43)
[2016-06-09] MEDS: PRENATAL VITAMINS W/ FOLIC ACID TABLET (FP) PO SCH (09:43)
[2016-06-09] MEDS: ESCITALOPRAM OXALATE 20 MG TABLET (FP) PO SCH (09:43)
[2016-06-09] MEDS: TOLNAFTATE 1% CREAM 15 GM TUBE TP SCH ×2 (09:44→21:37)
[2016-06-09] MEDS: AMMONIUM LACTATE 12% LOTION 225 GM BOTTLE TP PRN (09:44)
[2016-06-09] MEDS: THIAMINE HCL 100 MG TABLET (FP) PO SCH (21:37)
[2016-06-09] MEDS: traZODone HCL 50 MG TABLET (FP) PO SCH (21:37)
[2016-06-09] MEDS: RANITIDINE HCL 150 MG TABLET (FP) PO SCH (21:37)
[2016-06-09] MEDS: hydrOXYzine PAMOATE 50 MG CAPSULE (FP) PO SCH (21:37)
[2016-06-10] MEDS: guaiFENesin/D-METHORPHAN HB 10 ML UNIT-DOSE CUPS PO PRN ×2 (06:14→12:46)
[2016-06-10] MEDS: TOLNAFTATE 1% CREAM 15 GM TUBE TP SCH ×2 (09:41→21:44)
[2016-06-10] MEDS: PRENATAL VITAMINS W/ FOLIC ACID TABLET (FP) PO SCH (09:41)
[2016-06-10] MEDS: EMTRICITAB/RILPIVIRINE/TENOFOV 1 EACH TABLET PO SCH (09:41)
[2016-06-10] MEDS: ESCITALOPRAM OXALATE 20 MG TABLET (FP) PO SCH (09:41)
[2016-06-10] MEDS: RANITIDINE HCL 150 MG TABLET (FP) PO SCH (21:44)
[2016-06-10] MEDS: hydrOXYzine PAMOATE 50 MG CAPSULE (FP) PO SCH (21:44)
[2016-06-10] MEDS: THIAMINE HCL 100 MG TABLET (FP) PO SCH (21:44)
[2016-06-10] MEDS: traZODone HCL 50 MG TABLET (FP) PO SCH (21:44)
[2016-06-11] MEDS: guaiFENesin/D-METHORPHAN HB 10 ML UNIT-DOSE CUPS PO PRN (06:20)
[2016-06-11] MEDS: EMTRICITAB/RILPIVIRINE/TENOFOV 1 EACH TABLET PO SCH (09:41)
[2016-06-11] MEDS: ACETAMINOPHEN 325 MG TABLET (FP) PO PRN (09:41)
[2016-06-11] MEDS: ESCITALOPRAM OXALATE 20 MG TABLET (FP) PO SCH (09:41)
[2016-06-11] MEDS: TOLNAFTATE 1% CREAM 15 GM TUBE TP SCH ×2 (09:41→21:57)
[2016-06-11] MEDS: PRENATAL VITAMINS W/ FOLIC ACID TABLET (FP) PO SCH (09:41)
[2016-06-11] MEDS: MAG HYDROX/AL HYDROX/SIMETH 30 ML UNIT-DOSE CUP PO PRN (13:54)
[2016-06-11] MEDS: hydrOXYzine PAMOATE 50 MG CAPSULE (FP) PO SCH (21:57)
[2016-06-11] MEDS: THIAMINE HCL 100 MG TABLET (FP) PO SCH (21:57)
[2016-06-11] MEDS: traZODone HCL 50 MG TABLET (FP) PO SCH (21:57)
[2016-06-11] MEDS: RANITIDINE HCL 150 MG TABLET (FP) PO SCH (21:57)
[2016-06-12] MEDS: PRENATAL VITAMINS W/ FOLIC ACID TABLET (FP) PO SCH (10:22)
[2016-06-12] MEDS: ESCITALOPRAM OXALATE 20 MG TABLET (FP) PO SCH (10:22)
[2016-06-12] MEDS: TOLNAFTATE 1% CREAM 15 GM TUBE TP SCH ×2 (10:23→21:59)
[2016-06-12] MEDS: EMTRICITAB/RILPIVIRINE/TENOFOV 1 EACH TABLET PO SCH (10:23)
[2016-06-12] MEDS: guaiFENesin/D-METHORPHAN HB 10 ML UNIT-DOSE CUPS PO PRN (10:24)
[2016-06-12] MEDS: MAG HYDROX/AL HYDROX/SIMETH 30 ML UNIT-DOSE CUP PO PRN (17:12)
[2016-06-12] MEDS: traZODone HCL 50 MG TABLET (FP) PO SCH (21:58)
[2016-06-12] MEDS: THIAMINE HCL 100 MG TABLET (FP) PO SCH (21:58)
[2016-06-12] MEDS: hydrOXYzine PAMOATE 50 MG CAPSULE (FP) PO SCH (21:59)
[2016-06-12] MEDS: RANITIDINE HCL 150 MG TABLET (FP) PO SCH (21:59)
[2016-06-13] MEDS: guaiFENesin/D-METHORPHAN HB 10 ML UNIT-DOSE CUPS PO PRN ×3 (06:50→22:08)
[2016-06-13] MEDS: PRENATAL VITAMINS W/ FOLIC ACID TABLET (FP) PO SCH (10:19)
[2016-06-13] MEDS: EMTRICITAB/RILPIVIRINE/TENOFOV 1 EACH TABLET PO SCH (10:19)
[2016-06-13] MEDS: TOLNAFTATE 1% CREAM 15 GM TUBE TP SCH ×2 (10:19→22:05)
[2016-06-13] MEDS: ESCITALOPRAM OXALATE 20 MG TABLET (FP) PO SCH (10:19)
[2016-06-13] MEDS: MAG HYDROX/AL HYDROX/SIMETH 30 ML UNIT-DOSE CUP PO PRN (18:46)
[2016-06-13] MEDS: RANITIDINE HCL 150 MG TABLET (FP) PO SCH (22:04)
[2016-06-13] MEDS: traZODone HCL 50 MG TABLET (FP) PO SCH (22:05)
[2016-06-13] MEDS: THIAMINE HCL 100 MG TABLET (FP) PO SCH (22:05)
[2016-06-13] MEDS: hydrOXYzine PAMOATE 50 MG CAPSULE (FP) PO SCH (22:05)
[2016-06-14] MEDS: PRENATAL VITAMINS W/ FOLIC ACID TABLET (FP) PO SCH (10:13)
[2016-06-14] MEDS: ESCITALOPRAM OXALATE 20 MG TABLET (FP) PO SCH (10:13)
[2016-06-14] MEDS: TOLNAFTATE 1% CREAM 15 GM TUBE TP SCH ×2 (10:13→21:52)
[2016-06-14] MEDS: EMTRICITAB/RILPIVIRINE/TENOFOV 1 EACH TABLET PO SCH (10:13)
[2016-06-14] MEDS: hydrOXYzine PAMOATE 50 MG CAPSULE (FP) PO SCH (21:50)
[2016-06-14] MEDS: traZODone HCL 50 MG TABLET (FP) PO SCH (21:50)
[2016-06-14] MEDS: THIAMINE HCL 100 MG TABLET (FP) PO SCH (21:50)
[2016-06-14] MEDS: RANITIDINE HCL 150 MG TABLET (FP) PO SCH (21:50)
[2016-06-15] MEDS: EMTRICITAB/RILPIVIRINE/TENOFOV 1 EACH TABLET PO SCH (09:43)
[2016-06-15] MEDS: TOLNAFTATE 1% CREAM 15 GM TUBE TP SCH ×2 (09:43→22:04)
[2016-06-15] MEDS: PRENATAL VITAMINS W/ FOLIC ACID TABLET (FP) PO SCH (09:43)
[2016-06-15] MEDS: ESCITALOPRAM OXALATE 20 MG TABLET (FP) PO SCH (09:43)
[2016-06-15] MEDS: RANITIDINE HCL 150 MG TABLET (FP) PO SCH (22:03)
[2016-06-15] MEDS: traZODone HCL 50 MG TABLET (FP) PO SCH (22:04)
[2016-06-15] MEDS: hydrOXYzine PAMOATE 50 MG CAPSULE (FP) PO SCH (22:04)
[2016-06-15] MEDS: THIAMINE HCL 100 MG TABLET (FP) PO SCH (22:04)
[2016-06-15] MEDS: MAG HYDROX/AL HYDROX/SIMETH 30 ML UNIT-DOSE CUP PO PRN (22:05)
[2016-06-16] MEDS: PRENATAL VITAMINS W/ FOLIC ACID TABLET (FP) PO SCH (10:37)
[2016-06-16] MEDS: ESCITALOPRAM OXALATE 20 MG TABLET (FP) PO SCH (10:37)
[2016-06-16] MEDS: EMTRICITAB/RILPIVIRINE/TENOFOV 1 EACH TABLET PO SCH (10:38)
[2016-06-16] MEDS: MAG HYDROX/AL HYDROX/SIMETH 30 ML UNIT-DOSE CUP PO PRN ×2 (10:38→21:56)
[2016-06-16] MEDS: TOLNAFTATE 1% CREAM 15 GM TUBE TP SCH ×2 (10:38→21:57)
[2016-06-16] MEDS: RANITIDINE HCL 150 MG TABLET (FP) PO SCH (21:54)
[2016-06-16] MEDS: hydrOXYzine PAMOATE 50 MG CAPSULE (FP) PO SCH (21:55)
[2016-06-16] MEDS: traZODone HCL 50 MG TABLET (FP) PO SCH (21:55)
[2016-06-16] MEDS: THIAMINE HCL 100 MG TABLET (FP) PO SCH (21:55)
[2016-06-17] MEDS: EMTRICITAB/RILPIVIRINE/TENOFOV 1 EACH TABLET PO SCH (10:25)
[2016-06-17] MEDS: ESCITALOPRAM OXALATE 20 MG TABLET (FP) PO SCH (10:25)
[2016-06-17] MEDS: PRENATAL VITAMINS W/ FOLIC ACID TABLET (FP) PO SCH (10:25)
[2016-06-17] MEDS: TOLNAFTATE 1% CREAM 15 GM TUBE TP SCH ×2 (10:26→21:55)
[2016-06-17] MEDS: RANITIDINE HCL 150 MG TABLET (FP) PO SCH (21:54)
[2016-06-17] MEDS: THIAMINE HCL 100 MG TABLET (FP) PO SCH (21:54)
[2016-06-17] MEDS: hydrOXYzine PAMOATE 50 MG CAPSULE (FP) PO SCH (21:55)
[2016-06-17] MEDS: traZODone HCL 50 MG TABLET (FP) PO SCH (21:55)
[2016-06-18] MEDS: PRENATAL VITAMINS W/ FOLIC ACID TABLET (FP) PO SCH (10:54)
[2016-06-18] MEDS: EMTRICITAB/RILPIVIRINE/TENOFOV 1 EACH TABLET PO SCH (10:54)
[2016-06-18] MEDS: TOLNAFTATE 1% CREAM 15 GM TUBE TP SCH ×2 (10:54→21:44)
[2016-06-18] MEDS: ESCITALOPRAM OXALATE 20 MG TABLET (FP) PO SCH (10:54)
[2016-06-18] MEDS: traZODone HCL 50 MG TABLET (FP) PO SCH (21:44)
[2016-06-18] MEDS: hydrOXYzine PAMOATE 50 MG CAPSULE (FP) PO SCH (21:44)
[2016-06-18] MEDS: RANITIDINE HCL 150 MG TABLET (FP) PO SCH (21:44)
[2016-06-18] MEDS: THIAMINE HCL 100 MG TABLET (FP) PO SCH (21:44)
[2016-06-19] MEDS: AMMONIUM LACTATE 12% LOTION 225 GM BOTTLE TP PRN (06:30)
[2016-06-19] MEDS: TOLNAFTATE 1% CREAM 15 GM TUBE TP SCH ×2 (10:45→21:47)
[2016-06-19] MEDS: ESCITALOPRAM OXALATE 20 MG TABLET (FP) PO SCH (10:45)
[2016-06-19] MEDS: EMTRICITAB/RILPIVIRINE/TENOFOV 1 EACH TABLET PO SCH (10:45)
[2016-06-19] MEDS: PRENATAL VITAMINS W/ FOLIC ACID TABLET (FP) PO SCH (10:45)
[2016-06-19] MEDS: traZODone HCL 50 MG TABLET (FP) PO SCH (21:46)
[2016-06-19] MEDS: RANITIDINE HCL 150 MG TABLET (FP) PO SCH (21:46)
[2016-06-19] MEDS: hydrOXYzine PAMOATE 50 MG CAPSULE (FP) PO SCH (21:47)
[2016-06-19] MEDS: THIAMINE HCL 100 MG TABLET (FP) PO SCH (21:47)
[2016-06-20] MEDS: ESCITALOPRAM OXALATE 20 MG TABLET (FP) PO SCH (10:42)
[2016-06-20] MEDS: PRENATAL VITAMINS W/ FOLIC ACID TABLET (FP) PO SCH (10:42)
[2016-06-20] MEDS: TOLNAFTATE 1% CREAM 15 GM TUBE TP SCH ×2 (10:42→21:52)
[2016-06-20] MEDS: EMTRICITAB/RILPIVIRINE/TENOFOV 1 EACH TABLET PO SCH (10:42)
[2016-06-20] MEDS: MAG HYDROX/AL HYDROX/SIMETH 30 ML UNIT-DOSE CUP PO PRN (15:30)
[2016-06-20] MEDS: RANITIDINE HCL 150 MG TABLET (FP) PO SCH (21:51)
[2016-06-20] MEDS: THIAMINE HCL 100 MG TABLET (FP) PO SCH (21:51)
[2016-06-20] MEDS: traZODone HCL 50 MG TABLET (FP) PO SCH (21:52)
[2016-06-20] MEDS: hydrOXYzine PAMOATE 50 MG CAPSULE (FP) PO SCH (21:52)
[2016-06-21] MEDS: PRENATAL VITAMINS W/ FOLIC ACID TABLET (FP) PO SCH (10:40)
[2016-06-21] MEDS: EMTRICITAB/RILPIVIRINE/TENOFOV 1 EACH TABLET PO SCH (10:40)
[2016-06-21] MEDS: ESCITALOPRAM OXALATE 20 MG TABLET (FP) PO SCH (10:40)
[2016-06-21] MEDS: TOLNAFTATE 1% CREAM 15 GM TUBE TP SCH ×2 (10:40→21:47)
[2016-06-21] MEDS: hydrOXYzine PAMOATE 50 MG CAPSULE (FP) PO SCH (21:47)
[2016-06-21] MEDS: THIAMINE HCL 100 MG TABLET (FP) PO SCH (21:47)
[2016-06-21] MEDS: RANITIDINE HCL 150 MG TABLET (FP) PO SCH (21:47)
[2016-06-21] MEDS: traZODone HCL 50 MG TABLET (FP) PO SCH (21:47)
[2016-06-22] MEDS: EMTRICITAB/RILPIVIRINE/TENOFOV 1 EACH TABLET PO SCH (10:29)
[2016-06-22] MEDS: ESCITALOPRAM OXALATE 20 MG TABLET (FP) PO SCH (10:29)
[2016-06-22] MEDS: PRENATAL VITAMINS W/ FOLIC ACID TABLET (FP) PO SCH (10:29)
[2016-06-22] MEDS: TOLNAFTATE 1% CREAM 15 GM TUBE TP SCH ×2 (10:30→21:43)
[2016-06-22] MEDS: MAG HYDROX/AL HYDROX/SIMETH 30 ML UNIT-DOSE CUP PO PRN (17:23)
[2016-06-22] MEDS: traZODone HCL 50 MG TABLET (FP) PO SCH (21:42)
[2016-06-22] MEDS: THIAMINE HCL 100 MG TABLET (FP) PO SCH (21:42)
[2016-06-22] MEDS: RANITIDINE HCL 150 MG TABLET (FP) PO SCH (21:42)
[2016-06-22] MEDS: hydrOXYzine PAMOATE 50 MG CAPSULE (FP) PO SCH (21:42)
[2016-06-23] MEDS: EMTRICITAB/RILPIVIRINE/TENOFOV 1 EACH TABLET PO SCH (10:08)
[2016-06-23] MEDS: ESCITALOPRAM OXALATE 20 MG TABLET (FP) PO SCH (10:08)
[2016-06-23] MEDS: PRENATAL VITAMINS W/ FOLIC ACID TABLET (FP) PO SCH (10:08)
[2016-06-23] MEDS: TOLNAFTATE 1% CREAM 15 GM TUBE TP SCH ×2 (10:09→22:02)
[2016-06-23] MEDS: THIAMINE HCL 100 MG TABLET (FP) PO SCH (22:00)
[2016-06-23] MEDS: hydrOXYzine PAMOATE 50 MG CAPSULE (FP) PO SCH (22:01)
[2016-06-23] MEDS: traZODone HCL 50 MG TABLET (FP) PO SCH (22:01)
[2016-06-23] MEDS: RANITIDINE HCL 150 MG TABLET (FP) PO SCH (22:01)
[2016-06-24] MEDS: ESCITALOPRAM OXALATE 20 MG TABLET (FP) PO SCH (10:13)
[2016-06-24] MEDS: PRENATAL VITAMINS W/ FOLIC ACID TABLET (FP) PO SCH (10:13)
[2016-06-24] MEDS: EMTRICITAB/RILPIVIRINE/TENOFOV 1 EACH TABLET PO SCH (10:13)
[2016-06-24] MEDS: TOLNAFTATE 1% CREAM 15 GM TUBE TP SCH ×2 (10:14→21:54)
[2016-06-24] MEDS: AMMONIUM LACTATE 12% LOTION 225 GM BOTTLE TP PRN (16:43)
[2016-06-24] MEDS: MAG HYDROX/AL HYDROX/SIMETH 30 ML UNIT-DOSE CUP PO PRN (18:44)
[2016-06-24] MEDS: RANITIDINE HCL 150 MG TABLET (FP) PO SCH (21:53)
[2016-06-24] MEDS: THIAMINE HCL 100 MG TABLET (FP) PO SCH (21:53)
[2016-06-24] MEDS: hydrOXYzine PAMOATE 50 MG CAPSULE (FP) PO SCH (21:54)
[2016-06-24] MEDS: traZODone HCL 50 MG TABLET (FP) PO SCH (21:54)
[2016-06-25] MEDS: PRENATAL VITAMINS W/ FOLIC ACID TABLET (FP) PO SCH (10:36)
[2016-06-25] MEDS: EMTRICITAB/RILPIVIRINE/TENOFOV 1 EACH TABLET PO SCH (10:36)
[2016-06-25] MEDS: TOLNAFTATE 1% CREAM 15 GM TUBE TP SCH ×2 (10:36→21:56)
[2016-06-25] MEDS: ESCITALOPRAM OXALATE 20 MG TABLET (FP) PO SCH (10:36)
[2016-06-25] MEDS: MAG HYDROX/AL HYDROX/SIMETH 30 ML UNIT-DOSE CUP PO PRN (19:59)
[2016-06-25] MEDS: hydrOXYzine PAMOATE 50 MG CAPSULE (FP) PO SCH (21:54)
[2016-06-25] MEDS: traZODone HCL 50 MG TABLET (FP) PO SCH (21:54)
[2016-06-25] MEDS: THIAMINE HCL 100 MG TABLET (FP) PO SCH (21:55)
[2016-06-25] MEDS: RANITIDINE HCL 150 MG TABLET (FP) PO SCH (21:55)
[2016-06-26] MEDS: PRENATAL VITAMINS W/ FOLIC ACID TABLET (FP) PO SCH (10:37)
[2016-06-26] MEDS: EMTRICITAB/RILPIVIRINE/TENOFOV 1 EACH TABLET PO SCH (10:37)
[2016-06-26] MEDS: ESCITALOPRAM OXALATE 20 MG TABLET (FP) PO SCH (10:37)
[2016-06-26] MEDS: TOLNAFTATE 1% CREAM 15 GM TUBE TP SCH ×2 (10:38→21:49)
[2016-06-26] MEDS: hydrOXYzine PAMOATE 50 MG CAPSULE (FP) PO SCH (21:48)
[2016-06-26] MEDS: RANITIDINE HCL 150 MG TABLET (FP) PO SCH (21:48)
[2016-06-26] MEDS: THIAMINE HCL 100 MG TABLET (FP) PO SCH (21:48)
[2016-06-26] MEDS: traZODone HCL 50 MG TABLET (FP) PO SCH (21:48)
[2016-06-27 06:44] VITALS: BP 115/67; PULSE 74; TEMP 97.9
[2016-06-27] MEDS: EMTRICITAB/RILPIVIRINE/TENOFOV 1 EACH TABLET PO SCH (10:03)
[2016-06-27] MEDS: PRENATAL VITAMINS W/ FOLIC ACID TABLET (FP) PO SCH (10:03)
[2016-06-27] MEDS: ESCITALOPRAM OXALATE 20 MG TABLET (FP) PO SCH (10:03)
[2016-06-27] MEDS: AMMONIUM LACTATE 12% LOTION 225 GM BOTTLE TP PRN (10:03)
[2016-06-27] MEDS: TOLNAFTATE 1% CREAM 15 GM TUBE TP SCH (10:04)
--- NOTE | 2016-06-27 12:05 | PN ---
Psychiatric Progress Note Vital Signs: Vital Signs Period Temp Pulse Resp BP Sys/Ell[place] Pulse Ox Last 24 Hr 97.9 F 74 18-18 115/67 Date of Session: 06/27/16 Chief Complaint:: discharge visit HPI: Patient has addressed alcohol, cannabis dependence comorbid MDD. ROS: WNL Current Side Effect: No Lab tests ordered: No Lab tests reviewed: Yes Provider note:: Patient has completed today his treatment and met his goals, will continue to address his issues at [facility] outpatient treatment program. He understands the negative impact of drinking and using drugs made on his live, he motivated to continue maintain abstienence. He focuse into importance of changing attitude for the utilization of supports to prevent relapses. Patient was encouraged to continue maintain abstinence and use alternative ways to cope with stressors. He tolerated medications, well scripts provided for 30 days, will follow up with his psychiatrist at [facility]. Patient is stable for discharge. Total face to face time:: 25 Mental Status Exam - Mental Status Exam Alert and Oriented to: Time, Place, Person Cognitive Function: Good Patient Appearance: Well Groomed Mood: Hopeful Affect: Appropriate, Mood Congruent Patient Behavior: Appropriate, Cooperative Speech Pattern: Clear, Appropriate Voice Loudness: Normal Thought Process: Intact, Goal Oriented Thought Disorder: Not Present Hallucinations: Denies Suicidal Ideation: Denies Homicidal Ideation: Denies Insight/Judgement: Fair Sleep: Fair Appetite: Good Muscle strength/Tone: Normal Gait/Station: Normal Psychiatric Treatment Plan - Problem List (3) Nicotine dependence Qualifiers: Nicotine product type: cigarettes Substance use status: uncomplicated Qualified Code(s): F17.210 - Nicotine dependence, cigarettes, uncomplicated (5) MDD (major depressive disorder) Comment: Self-report.
== END 2016-06-27 10:12 | disposition home or self-care (01) | DRG 772 ==
LOC: YASAS 13:36 → Y5N 13:37
PROVIDERS: ADMIT Psychiatry & Neurology Psychiatry; ATTEND Psychiatry & Neurology Psychiatry
PROC: HZ42ZZZ Group Counseling for Substance Abuse Treatment, Cognitive-Behavioral (ICD-10-PCS; principal; 2016-06-27)
DX: F10.230 Alcohol dependence with withdrawal, uncomplicated (principal); F12.20 Cannabis dependence, uncomplicated; F17.210 Nicotine dependence, cigarettes, uncomplicated; F32.9 Major depressive disorder, single episode, unspecified; Z21 Asymptomatic human immunodeficiency virus [HIV] infection status
CPT/HCPCS: 36415; 87389

== ENCOUNTER 2018-05-07 15:35 | Inpatient (IN) | payer OTHER ==
[2018-05-07 18:35] VITALS: BMI 38.0
--- NOTE | 2018-05-07 21:15 | HP ---
CIWA Score Nausea/Vomitin-No Nausea/No Vomiting Muscle Tremors: 2 Anxiety: 3 Agitation: 2 Paroxysmal Sweats: 2 Orientation: 1-Uncertain about Date Tacttile Disturbances: 0-None Auditory Disturbances: 0-None Visual Disturbances: 0-None Headache: 0-None Present CIWA-Ar Total Score: 10 - Admission Criteria OASAS Guidelines: Admission for Medically Managed Detox: Requires at least one of the followin. CIWA greater than 12 2. Seizures within the past 24 hours 3. Delirium tremens within the past 24 hours 4. Hallucinations within the past 24 hours 5. Acute intervention needed for co occurring medical disorder 6. Acute intervention needed for co occurring psychiatric disorder 7. Severe withdrawal that cannot be handled at a lower level of care (continued vomiting, continued diarrhea, abnormal vital signs) requiring intravenous medication and/or fluids 8. Patient presents the following: Acute intervention needed for co-occurring med or psych disorder Admission Criteria Met: Admission criteria met Admission ROS S - HPI Chief Complaint: detox Allergies/Adverse Reactions: Allergies Allergy/AdvReac Type Severity Reaction Status Date / Time aspirin Allergy Severe Swelling Verified 05/07/18 20:37 fish derived Allergy Severe Hives Verified 05/07/18 20:37 History of Present Illness: 47 yo male with hx of nicotine, alcohol, crack/cocaine dependence is here seeking alcohol detox. utox positive for bzo, opi, lacie. Patient denies bzo use. Reports occasional heroin use, just use over this past weekend. Last detox at [facility] February 2018. PMHX: GERD, obesity, HIV. Denies psych hx. Denies suicidal / homicidal ideation. Denies hx of seizures or blackouts Exam Limitations: No Limitations - Ebola screening Have you traveled outside of the country in the last 21 days: No Have you had contact with anyone from an Ebola affected area: No Have you been sick,other than usual withdrawal symptoms: No - Review of Systems Constitutional: Weakness, Weight Stable, Other (fatigue) EENT: reports: No Symptoms Reported Respiratory: reports: No Symptoms reported Cardiac: reports: No Symptoms Reported GI: reports: Diarrhea, Poor Fluid Intake, Indigestion : reports: No Symptoms Reported Musculoskeletal: reports: No Symptoms Reported Integumentary: reports: Dryness, Pruritus Neuro: reports: No Symptoms reported Endocrine: reports: Increased Thirst Hematology: reports: See HPI Psychiatric: reports: Mood/Affect Appropiate, Orientated x3 Other Systems: Reviewed and Negative Patient History - Patient Medical History Hx Anemia: No Hx Asthma: No Hx Chronic Obstructive Pulmonary Disease (COPD): No Hx Cancer: No Hx Cardiac Disorders: No Hx Congestive Heart Failure: No Hx Hypertension: No Hx Hypercholesterolemia: No Hx Pacemaker: No HX Cerebrovascular Accident: No Hx Seizures: No Hx Dementia: No Hx Diabetes: No Hx Gastrointestinal Disorders: No Hx Liver Disease: No Hx Genitourinary Disorders: No Hx Sexually Transmitted Disorders: Yes (hiv) Hx Renal Disease (ESRD): No Hx Thyroid Disease: No Hx Human Immunodeficiency Virus (HIV): Yes (ON MEDS) Hx Depression: No Hx Suicide Attempt: No Hx Bipolar Disorder: No Hx Schizophrenia: No - Patient Surgical History Past Surgical History: Yes Hx Neurologic Surgery: No Hx Cataract Extraction: No Hx Cardiac Surgery: No Hx Lung Surgery: No Hx Breast Surgery: Yes (Breast reduction 2006) Hx Breast Biopsy: No Hx Abdominal Surgery: No Hx Appendectomy: No Hx Cholecystectomy: No Hx Genitourinary Surgery: No Hx Section: No Hx Orthopedic Surgery: No Other Surgical History: Lipoma removed from left hip 2013 Anesthesia Reaction: No - PPD History Previous Implant?: Yes Documented Results: Negative w/o proof Implanted On Prior [facility] Admission?: Yes Date: 05/29/16 Results: 0 mm PPD to be Administered?: Yes - Smoking Cessation Smoking history: Current every day smoker Have you smoked in the past 12 months: Yes Aproximately how many cigarettes per day: 20 Cigars Per Day: 0 Hx Chewing Tobacco Use: No Initiated information on smoking cessation: Yes 'Breaking Loose' booklet given: 05/07/18 - Substance & Tx. History Hx Alcohol Use: Yes Hx Substance Use: Yes Substance Use Type: Alcohol, Cocaine Hx Substance Use Treatment: Yes (Last detox [facility] Feb 2018) - Substances Abused Alcohol Route: Oral Frequency: Daily Amount used: 2 x 40 oz beer + 1/2 pint iquor Age of first use: 18 Date of Last Use: 05/06/18 Crack Route: Smoking Frequency: Daily Amount used: $50 Age of first use: 25 Date of Last Use: 05/06/18 heroin Route: Inhalation Frequency: 3-6 times per week Amount used: 2 bags Age of first use: 25 (reports started using heroin this weekend ) Date of Last Use: 05/06/18 Family Disease History - Family Disease History Family Disease History: CA: Father ( GASTRIC CA/ ALCOHOLISM) Admission Physical Exam [facility] - Vital Signs Vital Signs: Vital Signs - 24 hr 05/07/18 18:33 Temperature 98 F Pulse Rate 90 Respiratory 18 Rate Blood Pressure 128/77 - Physical General Appearance: Yes: Appropriately Dressed, Obese, Anxious HEENTM: Yes: EOMI, Hearing grossly Normal, Normal ENT Inspection, Normocephalic , Normal Voice, ENID, Pharynx Normal Respiratory: Yes: Chest Non-Tender, Lungs Clear, Normal Breath Sounds, No Respiratory Distress, No Accessory Muscle Use Neck: Yes: Within Normal Limits Breast: Yes: Breast Exam Deferred Cardiology: Yes: Regular Rhythm, Regular Rate Abdominal: Yes: Normal Bowel Sounds, Non Tender, Soft, Protuberent Genitourinary: Yes: Within Normal Limits Back: Yes: Normal Inspection Musculoskeletal: Yes: Within Normal Limits Extremities: Yes: Normal Capillary Refill, Normal Inspection, Normal Range of Motion Neurological: Yes: etl developer II-XII NML intact, Fully Oriented, Motor Strength 5/5, Normal Mood/Affect (anxious), Depressed Affect Integumentary: Yes: Normal Color, Warm, Diaphoresis Lymphatic: Yes: Within Normal Limits - Diagnostic (1) Heroin use Current Visit: Yes Status: Acute (2) Alcohol dependence with uncomplicated withdrawal Current Visit: Yes Status: Acute (3) Cocaine dependence, uncomplicated Current Visit: Yes Status: Acute (4) Nicotine dependence Current Visit: Yes Status: Acute Qualifiers: Nicotine product type: cigarettes Substance use status: uncomplicated Qualified Code(s): F17.210 - Nicotine dependence, cigarettes, uncomplicated (5) GERD (gastroesophageal reflux disease) Current Visit: Yes Status: Chronic Qualifiers: Esophagitis presence: esophagitis presence not specified Qualified Code(s) : K21.9 - Gastro-esophageal reflux disease without esophagitis (6) HIV (human immunodeficiency virus infection) Current Visit: Yes Status: Chronic Cleared for Admission [facility] - Detox or Rehab [facility] Level of Care: Medically Managed Detox Regimen/Protocol: Librium [facility] Breath Alcohol Content Breath Alcohol Content: 0 Urine Drug Screen - Results Drug Screen Negative: No Urine Drug Screen Results: LACIE-Cocaine, OPI-Opiates, BZO-Benzodiazepines Inpatient Rehab Admission - Rehab Decision to Admit Inpatient rehab admission?: No
[2018-05-07] MEDS ORDERED: chlordiazePOXIDE HCL 25 MG CAPSULE PO ONE (21:26)
[2018-05-07] MEDS ORDERED: traZODone HCL 50 MG TABLET (FP) PO PRN (21:26)
[2018-05-07] MEDS ORDERED: MAGNESIUM HYDROX 2400MG/30ML ORAL SUSPENSION 30 ML CUP PO PRN (21:26)
[2018-05-07] MEDS ORDERED: MENTHOL/PHENOL 1 EACH UD MM PRN (21:26)
[2018-05-07] MEDS ORDERED: chlordiazePOXIDE HCL 10 MG CAPSULE PO PRN (21:26)
[2018-05-07] MEDS ORDERED: NICOTINE POLACRILEX 4 MG GUM BUC PRN (21:26)
[2018-05-07] MEDS ORDERED: ACETAMINOPHEN 325 MG TABLET (FP) PO PRN ×2 (21:26)
[2018-05-07] MEDS ORDERED: MAGNESIUM CITRATE 300 ML BOTTLE PO PRN (21:26)
[2018-05-07] MEDS ORDERED: METHOCARBAMOL 500 MG TABLET PO PRN (21:26)
[2018-05-07] MEDS: chlordiazePOXIDE HCL 25 MG CAPSULE PO SCH (23:18)
[2018-05-07] MEDS: THIAMINE HCL 100 MG TABLET (FP) PO SCH (23:28)
[2018-05-07] MEDS: RANITIDINE HCL 150 MG TABLET (FP) PO SCH (23:28)
[2018-05-07] MEDS: hydrOXYzine PAMOATE 25 MG CAPSULE (FP) PO PRN (23:29)
[2018-05-08 01:39] LABS: URINE APPEARANCE TURBID; URINE BILIRUBIN NEGATIVE (<2.0 mg/dL); URINE COLOR YELLOW; URINE GLUCOSE (UA) NEGATIVE (NEGATIVE); URINE KETONE TRACE (NEGATIVE); URINE LEUK ESTERASE NEGATIVE (NEGATIVE); URINE NITRITE NEGATIVE (NEGATIVE); URINE PROTEIN 1+ (NEGATIVE)
[2018-05-08 01:47] LABS: URINE MUCUS MANY
[2018-05-08] MEDS: chlordiazePOXIDE HCL 25 MG CAPSULE PO SCH ×2 (05:39→14:30)
--- NOTE | 2018-05-08 10:17 | PN ---
S CIWA - CIWA Score Nausea/Vomitin Muscle Tremors: 2 Anxiety: 2 Agitation: 2 Paroxysmal Sweats: 2 Orientation: 0-Oriented Tacttile Disturbances: 1-Very Mild Itch/Numbness Auditory Disturbances: 1-Very Mild Visual Disturbances: 0-None Headache: 2-Mild CIWA-Ar Total Score: 14 S Progress Note (SOAP) Subjective: alert,irritable,anxious,interrupted sleep,tremor Objective: 05/08/18 10:16 Vital Signs Temperature 98.3 F 05/08/18 09:31 Pulse Rate 78 05/08/18 09:31 Respiratory Rate 18 05/08/18 09:31 Blood Pressure 106/67 05/08/18 09:31 O2 Sat by Pulse Oximetry (%) Laboratory Last Values Urine Color Yellow 05/07/18 23:10 Urine Appearance Turbid 05/07/18 23:10 Urine pH 5.0 (5.0-8.0) 05/07/18 23:10 Ur Specific [place] 1.038 (1.010-1.035) H 05/07/18 23:10 Urine Protein 1+ (NEGATIVE) H 05/07/18 23:10 Urine Glucose (UA) Negative (NEGATIVE) 05/07/18 23:10 Urine Ketones Trace (NEGATIVE) H 05/07/18 23:10 Urine Blood Negative (NEGATIVE) 05/07/18 23:10 Urine Nitrite Negative (NEGATIVE) 05/07/18 23:10 Urine Bilirubin Negative (<2.0 mg/dL) 05/07/18 23:10 Urine Urobilinogen 2.0 mg/dL (0.2-1.0) 05/07/18 23:10 Ur Leukocyte Esterase Negative (NEGATIVE) 05/07/18 23:10 Urine WBC (Auto) 59 /hpf (3-5) 05/07/18 23:10 Urine RBC (Auto) None /hpf (0-3) 05/07/18 23:10 Urine Mucus Many 05/07/18 23:10 labs pending Assessment: 05/08/18 10:17 withdrawal symptom Plan: continue detox,repeat ua
[2018-05-08] MEDS: NICOTINE 21 MG/24 HOURS TOPICAL PATCH TD SCH (10:22)
[2018-05-08] MEDS: PRENATAL VITAMINS W/ FOLIC ACID TABLET (FP) PO SCH (10:22)
--- NOTE | 2018-05-08 10:45 | EKG ---
Test Reason : Blood Pressure : / mmHG Vent. Rate : 075 BPM Atrial Rate : 075 BPM P-R Int : 130 ms QRS Dur : 086 ms QT Int : 398 ms P-R-T Axes : 053 081 047 degrees QTc Int : 444 ms NORMAL SINUS RHYTHM NORMAL ECG WHEN COMPARED WITH ECG OF 27-MAY-2016 21:56, NO SIGNIFICANT CHANGE WAS FOUND Confirmed by Pedro Turcios MD ([id number]) on 05/08/2018 10:44:42 AM Referred By: DANILO GRADY Confirmed By:Pedro Turcios MD
--- NOTE | 2018-05-08 10:54 | PN ---
[facility] Progress Note Note: pt states he is on odefsy medication but did not bring it with him. pharmacy was contacted and can provide medication however if not in stock and medication is formulary it can take a couple of days for patient to receive it. Pt was informed and pt decided that he will wait and take it when he is discharged from detox.
[2018-05-08 11:22] LABS: HEMOGLOBIN 13.8 GM/dL (11.7-16.9); MCHC 34.6 g/dl (32.0-35.9); MEAN CELL VOLUME 89.7 fl (80-96); MEAN PLT VOLUME 8.4 fl (7.5-11.1); PLATELET COUNT 280 K/MM3 (134-434); RBC 4.46 M/mm3 (4.00-5.60); RDW 15.3 % (11.9-15.9); WHITE BLOOD COUNT 6.1 K/mm3 (4.0-10.0)
[2018-05-08 11:38] LABS: ALBUMIN 3.6 g/dl (3.4-5.0); ALK PHOS 66 U/L (45-117); ANION GAP 6 MMOL/L (8-16); BILIRUBIN,TOTAL 0.4 mg/dL (0.2-1); BLOOD UREA NITROGEN 17 mg/dL (7-18); CALCIUM 9.1 mg/dL (8.5-10.1); CHLORIDE 105 mmol/L (98-107); CO2 26 mmol/L (21-32); CREATININE 1.4 mg/dL (0.55-1.3); GLUCOSE,RANDOM 95 mg/dL (74-106); POTASSIUM 3.7 mmol/L (3.5-5.1); SGOT/AST 20 U/L (15-37); SGPT/ALT 26 U/L (13-61); SODIUM 137 mmol/L (136-145); TOT PROT 7.2 g/dl (6.4-8.2)
[2018-05-08] MEDS: RANITIDINE HCL 150 MG TABLET (FP) PO SCH (22:24)
[2018-05-08] MEDS: chlordiazePOXIDE 5 MG CAPSULE PO SCH (22:24)
[2018-05-08] MEDS: THIAMINE HCL 100 MG TABLET (FP) PO SCH (22:24)
[2018-05-08] MEDS: MAG HYDROX/AL HYDROX/SIMETH 30 ML UNIT-DOSE CUP PO PRN (22:27)
[2018-05-09] MEDS: chlordiazePOXIDE 5 MG CAPSULE PO SCH ×2 (07:00→12:55)
[2018-05-09] MEDS: NICOTINE 21 MG/24 HOURS TOPICAL PATCH TD SCH (10:27)
[2018-05-09] MEDS: MAG HYDROX/AL HYDROX/SIMETH 30 ML UNIT-DOSE CUP PO PRN ×2 (10:27→19:10)
[2018-05-09] MEDS: PRENATAL VITAMINS W/ FOLIC ACID TABLET (FP) PO SCH (10:27)
--- NOTE | 2018-05-09 11:11 | PN ---
[facility] CIWA - CIWA Score Nausea/Vomitin-No Nausea/No Vomiting Muscle Tremors: 3 Anxiety: 3 Agitation: 3 Paroxysmal Sweats: 3 Orientation: 0-Oriented Tacttile Disturbances: 0-None Auditory Disturbances: 0-None Visual Disturbances: 0-None Headache: 0-None Present CIWA-Ar Total Score: 12 S Progress Note (SOAP) Subjective: agitation sweats I really need my HIV medication while I am here. I am unable to get anyone to pick it up for me. My pharmacy wont deliver. interrupted sleep Objective: 05/09/18 11:10 Vital Signs Temperature 97.9 F 05/09/18 09:44 Pulse Rate 76 05/09/18 09:44 Respiratory Rate 18 05/09/18 09:44 Blood Pressure 122/58 L 05/09/18 09:44 O2 Sat by Pulse Oximetry (%) Laboratory Tests 05/07/18 05/08/18 05/08/18 23:10 07:30 07:30 WBC 6.1 RBC 4.46 Hgb 13.8 Hct 40.0 MCV 89.7 MCH 31.0 MCHC 34.6 RDW 15.3 Plt Count 280 MPV 8.4 Sodium 137 Potassium 3.7 Chloride 105 Carbon Dioxide 26 Anion Gap 6 L BUN 17 Creatinine 1.4 H Creat Clearance w eGFR 54.80 Random Glucose 95 Calcium 9.1 Total Bilirubin 0.4 AST 20 ALT 26 Alkaline Phosphatase 66 Total Protein 7.2 Albumin 3.6 Urine Color Yellow Urine Appearance Turbid Urine pH 5.0 Ur Specific [place] 1.038 H Urine Protein 1+ H Urine Glucose (UA) Negative Urine Ketones Trace H Urine Blood Negative Urine Nitrite Negative Urine Bilirubin Negative Urine Urobilinogen 2.0 Ur Leukocyte Esterase Negative Urine WBC (Auto) 59 Urine RBC (Auto) None Urine Mucus Many RPR Titer 05/08/18 07:30 WBC RBC Hgb Hct MCV MCH MCHC RDW Plt Count MPV Sodium Potassium Chloride Carbon Dioxide Anion Gap BUN Creatinine Creat Clearance w eGFR Random Glucose Calcium Total Bilirubin AST ALT Alkaline Phosphatase Total Protein Albumin Urine Color Urine Appearance Urine pH Ur Specific [place] Urine Protein Urine Glucose (UA) Urine Ketones Urine Blood Urine Nitrite Urine Bilirubin Urine Urobilinogen Ur Leukocyte Esterase Urine WBC (Auto) Urine RBC (Auto) Urine Mucus RPR Titer Nonreactive aaox3 ambulating no acute distress Assessment: 05/09/18 11:10 mild withdrawal sx Plan: continue detox increase fluids HIV odefsey ordered as per pt request.
[2018-05-09 11:38] LABS: URINE APPEARANCE CLEAR; URINE BILIRUBIN NEGATIVE (<2.0 mg/dL); URINE COLOR LTYELLOW; URINE GLUCOSE (UA) NEGATIVE (NEGATIVE); URINE KETONE NEGATIVE (NEGATIVE); URINE LEUK ESTERASE NEGATIVE (NEGATIVE); URINE NITRITE NEGATIVE (NEGATIVE); URINE PROTEIN NEGATIVE (NEGATIVE); URINE UROBILINOGEN NEGATIVE mg/dL (0.2-1.0)
[2018-05-09] MEDS ORDERED: chlordiazePOXIDE HCL 10 MG CAPSULE PO PRN (21:00)
[2018-05-09] MEDS: RANITIDINE HCL 150 MG TABLET (FP) PO SCH (22:17)
[2018-05-09] MEDS: THIAMINE HCL 100 MG TABLET (FP) PO SCH (22:17)
[2018-05-09] MEDS: chlordiazePOXIDE HCL 10 MG CAPSULE PO SCH (22:19)
[2018-05-10] MEDS: chlordiazePOXIDE HCL 10 MG CAPSULE PO SCH ×3 (07:24→22:28)
[2018-05-10] MEDS ORDERED: EMTRICITAB/RILPIVIRI/TENOF ALA (ODEFSEY) TABLET PO SCH (10:00)
[2018-05-10] MEDS: EMTRICITAB/RILPIVIRI/TENOF ALA (ODEFSEY) TABLET PO SCH (10:47)
[2018-05-10] MEDS: PRENATAL VITAMINS W/ FOLIC ACID TABLET (FP) PO SCH (10:47)
[2018-05-10] MEDS: NICOTINE 21 MG/24 HOURS TOPICAL PATCH TD SCH (10:47)
--- NOTE | 2018-05-10 14:48 | PN ---
[facility] Progress Note (SOAP) Subjective: Sweating, Interrupted Sleep, Anxious. Objective: PATIENT A & O X 3, OBSERVED AMBULATING ON UNIT. IN NO ACUTE DISTRESS. 05/10/18 14:45 Vital Signs Temperature 97.9 F 05/10/18 14:04 Pulse Rate 74 05/10/18 14:04 Respiratory Rate 16 05/10/18 14:04 Blood Pressure 101/56 L 05/10/18 14:04 O2 Sat by Pulse Oximetry (%) Laboratory Tests 05/07/18 05/08/18 05/08/18 23:10 07:30 07:30 WBC 6.1 RBC 4.46 Hgb 13.8 Hct 40.0 MCV 89.7 MCH 31.0 MCHC 34.6 RDW 15.3 Plt Count 280 MPV 8.4 Sodium 137 Potassium 3.7 Chloride 105 Carbon Dioxide 26 Anion Gap 6 L BUN 17 Creatinine 1.4 H Creat Clearance w eGFR 54.80 Random Glucose 95 Calcium 9.1 Total Bilirubin 0.4 AST 20 ALT 26 Alkaline Phosphatase 66 Total Protein 7.2 Albumin 3.6 Urine Color Yellow Urine Appearance Turbid Urine pH 5.0 Ur Specific [place] 1.038 H Urine Protein 1+ H Urine Glucose (UA) Negative Urine Ketones Trace H Urine Blood Negative Urine Nitrite Negative Urine Bilirubin Negative Urine Urobilinogen 2.0 Ur Leukocyte Esterase Negative Urine WBC (Auto) 59 Urine RBC (Auto) None Urine Mucus Many RPR Titer 05/08/18 05/09/18 07:30 08:00 WBC RBC Hgb Hct MCV MCH MCHC RDW Plt Count MPV Sodium Potassium Chloride Carbon Dioxide Anion Gap BUN Creatinine Creat Clearance w eGFR Random Glucose Calcium Total Bilirubin AST ALT Alkaline Phosphatase Total Protein Albumin Urine Color Ltyellow Urine Appearance Clear Urine pH 5.0 Ur Specific [place] 1.011 Urine Protein Negative Urine Glucose (UA) Negative Urine Ketones Negative Urine Blood Negative Urine Nitrite Negative Urine Bilirubin Negative Urine Urobilinogen Negative Ur Leukocyte Esterase Negative Urine WBC (Auto) Urine RBC (Auto) Urine Mucus RPR Titer Nonreactive LABS NOTED. RESULTS OF REPEAT UA NOTED. 05/10/18 14:46 Assessment: 05/10/18 14:46 WITHDRAWAL SYMPTOMS. Plan: CONTINUE DETOX. INCREASE DAILY PO FLUID INTAKE. DUE TO PRESENCE AND SEVERITY OF LINGERING WITHDRAWAL SYMPTOMS, PATIENT PERMITTED TO REMAIN ON DETOX UNIT UNTIL TOMORROW AM.
[2018-05-10] MEDS: MAG HYDROX/AL HYDROX/SIMETH 30 ML UNIT-DOSE CUP PO PRN ×2 (15:56→22:28)
[2018-05-10] MEDS: RANITIDINE HCL 150 MG TABLET (FP) PO SCH (22:28)
[2018-05-10] MEDS: THIAMINE HCL 100 MG TABLET (FP) PO SCH (22:29)
[2018-05-10] MEDS: hydrOXYzine PAMOATE 25 MG CAPSULE (FP) PO PRN (22:30)
--- NOTE | 2018-05-11 08:20 | PN ---
S Progress Note (SOAP) Subjective: alert,no complaint Objective: 05/11/18 08:18 Vital Signs Temperature 97.7 F 05/11/18 06:00 Pulse Rate 66 05/11/18 06:00 Respiratory Rate 20 05/11/18 06:00 Blood Pressure 106/66 05/11/18 06:00 O2 Sat by Pulse Oximetry (%) Assessment: 05/11/18 08:19 detox completed,no withdrawal symptom Plan: discharge today,follow up with [facility]
--- NOTE | 2018-05-11 08:25 | DS ---
[facility] Detox Discharge Summary Admission Date: 05/07/18 Discharge Date: 05/11/18 - History Present History: Alcohol Dependence, Cocaine Dependence Pertinent Past History: hiv nicotine dependence heroin abused - Physical Exam Results Vital Signs: Vital Signs Temperature 97.7 F 05/11/18 06:00 Pulse Rate 66 05/11/18 06:00 Respiratory Rate 20 05/11/18 06:00 Blood Pressure 106/66 05/11/18 06:00 O2 Sat by Pulse Oximetry (%) Pertinent Admission Physical Exam Findings: withdrawal sins and symptom Vital Signs Temperature 97.7 F 05/11/18 06:00 Pulse Rate 66 05/11/18 06:00 Respiratory Rate 20 05/11/18 06:00 Blood Pressure 106/66 05/11/18 06:00 O2 Sat by Pulse Oximetry (%) Laboratory Last Values WBC 6.1 K/mm3 (4.0-10.0) 05/08/18 07:30 RBC 4.46 M/mm3 (4.00-5.60) 05/08/18 07:30 Hgb 13.8 GM/dL (11.7-16.9) 05/08/18 07:30 Hct 40.0 % (35.4-49) 05/08/18 07:30 MCV 89.7 fl (80-96) 05/08/18 07:30 MCH 31.0 pg (25.7-33.7) 05/08/18 07:30 MCHC 34.6 g/dl (32.0-35.9) 05/08/18 07:30 RDW 15.3 % (11.9-15.9) 05/08/18 07:30 Plt Count 280 K/MM3 (134-434) 05/08/18 07:30 MPV 8.4 fl (7.5-11.1) 05/08/18 07:30 Sodium 137 mmol/L (136-145) 05/08/18 07:30 Potassium 3.7 mmol/L (3.5-5.1) 05/08/18 07:30 Chloride 105 mmol/L (98-107) 05/08/18 07:30 Carbon Dioxide 26 mmol/L (21-32) 05/08/18 07:30 Anion Gap 6 MMOL/L (8-16) L 05/08/18 07:30 BUN 17 mg/dL (7-18) 05/08/18 07:30 Creatinine 1.4 mg/dL (0.55-1.3) H 05/08/18 07:30 Creat Clearance w eGFR 54.80 (>60) 05/08/18 07:30 Random Glucose 95 mg/dL (74-106) 05/08/18 07:30 Calcium 9.1 mg/dL (8.5-10.1) 05/08/18 07:30 Total Bilirubin 0.4 mg/dL (0.2-1) 05/08/18 07:30 AST 20 U/L (15-37) 05/08/18 07:30 ALT 26 U/L (13-61) 05/08/18 07:30 Alkaline Phosphatase 66 U/L (45-117) 05/08/18 07:30 Total Protein 7.2 g/dl (6.4-8.2) 05/08/18 07:30 Albumin 3.6 g/dl (3.4-5.0) 05/08/18 07:30 Urine Color [place] 05/09/18 08:00 Urine Appearance Clear 05/09/18 08:00 Urine pH 5.0 (5.0-8.0) 05/09/18 08:00 Ur Specific [place] 1.011 (1.010-1.035) 05/09/18 08:00 Urine Protein Negative (NEGATIVE) 05/09/18 08:00 Urine Glucose (UA) Negative (NEGATIVE) 05/09/18 08:00 Urine Ketones Negative (NEGATIVE) 05/09/18 08:00 Urine Blood Negative (NEGATIVE) 05/09/18 08:00 Urine Nitrite Negative (NEGATIVE) 05/09/18 08:00 Urine Bilirubin Negative (<2.0 mg/dL) 05/09/18 08:00 Urine Urobilinogen Negative mg/dL (0.2-1.0) 05/09/18 08:00 Ur Leukocyte Esterase Negative (NEGATIVE) 05/09/18 08:00 Urine WBC (Auto) 59 /hpf (3-5) 05/07/18 23:10 Urine RBC (Auto) None /hpf (0-3) 05/07/18 23:10 Urine Mucus Many 05/07/18 23:10 RPR Titer Nonreactive (NONREACTIVE) 05/08/18 07:30 - Treatment Hospital Course: Detox Protocol Followed, Detoxed Safely, Responded well, Discharged Condition Good, Rehab Referral Accepted Patient has Accepted a Rehab Referral to: [facility] - Medication Discharge Medications: Ambulatory Orders Multivitamin [Poly-Vitamin] 1 each PO DAILY 05/27/16 Emtricitab/Rilpiviri/Tenof Ala [Odefsey Tablet] 1 each PO DAILY 05/07/18 Ranitidine HCl [Zantac] 150 mg PO HS 05/07/18 traZODone HCL [Desyrel -] 50 mg PO HS PRN 05/07/18 - Diagnosis (1) Alcohol dependence with uncomplicated withdrawal Current Visit: Yes Status: Acute (2) Cocaine dependence, uncomplicated Current Visit: Yes Status: Acute (3) Heroin use Current Visit: Yes Status: Acute (4) Nicotine dependence Current Visit: Yes Status: Acute Qualifiers: Nicotine product type: cigarettes Substance use status: uncomplicated Qualified Code(s): F17.210 - Nicotine dependence, cigarettes, uncomplicated (5) GERD (gastroesophageal reflux disease) Current Visit: Yes Status: Chronic Qualifiers: Esophagitis presence: esophagitis presence not specified Qualified Code(s) : K21.9 - Gastro-esophageal reflux disease without esophagitis (6) HIV (human immunodeficiency virus infection) Current Visit: Yes Status: Chronic - AMA Did Patient Leave Against Medical Advice: No
[2018-05-11 09:44] VITALS: BP 125/75; PULSE 68; TEMP 98.7
[2018-05-11] MEDS: EMTRICITAB/RILPIVIRI/TENOF ALA (ODEFSEY) TABLET PO SCH (10:19)
[2018-05-11] MEDS: PRENATAL VITAMINS W/ FOLIC ACID TABLET (FP) PO SCH (10:19)
[2018-05-11] MEDS: MAG HYDROX/AL HYDROX/SIMETH 30 ML UNIT-DOSE CUP PO PRN (10:19)
[2018-05-11] MEDS: NICOTINE 21 MG/24 HOURS TOPICAL PATCH TD SCH (10:20)
== END 2018-05-11 11:22 | disposition home or self-care (01) | DRG 773 ==
LOC: YASAS 15:35 → Y6N 22:21
PROVIDERS: ADMIT Surgery; ATTEND Surgery
PROC: HZ2ZZZZ Detoxification Services for Substance Abuse Treatment (ICD-10-PCS; principal; 2018-05-07)
DX: F10.230 Alcohol dependence with withdrawal, uncomplicated (principal); F14.20 Cocaine dependence, uncomplicated; F11.10 Opioid abuse, uncomplicated; F17.210 Nicotine dependence, cigarettes, uncomplicated; Z21 Asymptomatic human immunodeficiency virus [HIV] infection status; K21.9 Gastro-esophageal reflux disease without esophagitis; Z91.013 Allergy to seafood; Z88.6 Allergy status to analgesic agent
CPT/HCPCS: 36415; 80053; 81003; 81015; 85027; 86593; 93005; 93010

== ENCOUNTER 2021-08-14 10:54 | Inpatient (IN) | payer OTHER ==
[2021-08-14 12:32] VITALS: BMI 42.5
[2021-08-14] MEDS ORDERED: NICOTINE 10 MG CARTRIDGE (INHALER) IH PRN (14:12)
[2021-08-14] MEDS ORDERED: LOPERAMIDE HCL 2 MG CAPSULE PO PRN (14:12)
[2021-08-14] MEDS ORDERED: MAG HYDROX/AL HYDROX/SIMETH 30 ML UNIT-DOSE CUP PO PRN (14:12)
[2021-08-14] MEDS ORDERED: IBUPROFEN 600 MG TABLET (FP) PO PRN (14:12)
[2021-08-14] MEDS ORDERED: MAGNESIUM CITRATE 300 ML BOTTLE PO PRN (14:12)
[2021-08-14] MEDS ORDERED: ACETAMINOPHEN 325 MG TABLET (FP) PO PRN ×2 (14:12)
[2021-08-14] MEDS ORDERED: ONDANSETRON *ODT* 4 MG TABLET SL PRN (14:12)
[2021-08-14] MEDS ORDERED: chlordiazePOXIDE HCL 25 MG CAPSULE PO ONE (14:12)
[2021-08-14] MEDS ORDERED: chlordiazePOXIDE HCL 25 MG CAPSULE PO PRN (14:12)
[2021-08-14] MEDS ORDERED: BENZOCAINE/MENTHOL (CHLORASEPTIC ) LOZENGE MM PRN (14:12)
[2021-08-14] MEDS ORDERED: DICYCLOMINE HCL 10 MG CAPSULE PO PRN (14:12)
[2021-08-14] MEDS ORDERED: MAGNESIUM HYDROX 2400MG/30ML ORAL SUSPENSION 30 ML CUP PO PRN (14:12)
[2021-08-14] MEDS ORDERED: chlordiazePOXIDE HCL 25 MG CAPSULE ONE (17:49)
[2021-08-14] MEDS: chlordiazePOXIDE HCL 25 MG CAPSULE PO SCH ×2 (17:52→23:42)
[2021-08-14] MEDS: hydrOXYzine PAMOATE 25 MG CAPSULE (FP) PO SCH ×2 (20:28→23:41)
[2021-08-14] MEDS: THIAMINE HCL 100 MG TABLET (FP) PO SCH (23:41)
[2021-08-14] MEDS: EMTRICITAB/RILPIVIRI/TENOF ALA (ODEFSEY) TABLET PO SCH (23:47)
[2021-08-14] MEDS: ROSUVASTATIN CA 40 MG TABLET PO SCH (23:47)
[2021-08-14] MEDS: MELATONIN 5 MG TABLETS PO SCH (23:47)
[2021-08-15] MEDS: chlordiazePOXIDE HCL 25 MG CAPSULE PO SCH ×4 (06:20→23:14)
[2021-08-15] MEDS: hydrOXYzine PAMOATE 25 MG CAPSULE (FP) PO SCH ×5 (06:21→23:14)
[2021-08-15 09:44] LABS: ALBUMIN 3.2 g/dl (3.4-5.0); TOT PROT 6.4 g/dl (6.4-8.2)
[2021-08-15 09:45] LABS: CALCIUM 8.7 mg/dL (8.5-10.1)
[2021-08-15 09:47] LABS: HEMATOCRIT 37.6 % (35.4-49); HEMOGLOBIN 12.2 GM/dL (11.7-16.9); MCHC 32.3 g/dl (32.0-35.9); MEAN CELL VOLUME 86.6 fl (80-96); PLATELET COUNT 276 10^3/uL (134-434); RBC 4.34 M/mm3 (4.00-5.60); RDW 15.4 % (11.9-15.9); WHITE BLOOD COUNT 5.1 K/mm3 (4.0-10.0)
[2021-08-15 09:49] LABS: BILIRUBIN,TOTAL 0.3 mg/dL (0.2-1); CREATININE 1.3 mg/dL (0.55-1.3)
[2021-08-15] MEDS: EMTRICITAB/RILPIVIRI/TENOF ALA (ODEFSEY) TABLET PO SCH (12:10)
[2021-08-15] MEDS: PRENATAL VITAMINS W/ FOLIC ACID TABLET (FP) PO SCH (12:11)
[2021-08-15] MEDS: MELATONIN 5 MG TABLETS PO SCH (23:14)
[2021-08-15] MEDS: ROSUVASTATIN CA 40 MG TABLET PO SCH (23:14)
[2021-08-15] MEDS: THIAMINE HCL 100 MG TABLET (FP) PO SCH (23:14)
[2021-08-16] MEDS: chlordiazePOXIDE HCL 25 MG CAPSULE PO SCH ×3 (05:56→18:35)
[2021-08-16] MEDS: hydrOXYzine PAMOATE 25 MG CAPSULE (FP) PO SCH ×4 (05:56→18:35)
[2021-08-16] MEDS ORDERED: traZODone HCL 50 MG TABLET (FP) PO PRN ×2 (09:51→09:53)
[2021-08-16] MEDS: EMTRICITAB/RILPIVIRI/TENOF ALA (ODEFSEY) TABLET PO SCH (11:25)
[2021-08-16] MEDS: PRENATAL VITAMINS W/ FOLIC ACID TABLET (FP) PO SCH (11:25)
[2021-08-16] MEDS: ESCITALOPRAM OXALATE 20 MG TABLET PO SCH (11:25)
[2021-08-16] MEDS: METHOCARBAMOL 500 MG TABLET PO PRN (11:26)
[2021-08-17] MEDS ORDERED: chlordiazePOXIDE HCL 10 MG CAPSULE PO PRN
[2021-08-17] MEDS: ROSUVASTATIN CA 40 MG TABLET PO SCH ×2 (00:03→23:24)
[2021-08-17] MEDS: MELATONIN 5 MG TABLETS PO SCH ×2 (00:04→23:24)
[2021-08-17] MEDS: hydrOXYzine PAMOATE 25 MG CAPSULE (FP) PO SCH ×6 (00:04→23:24)
[2021-08-17] MEDS: THIAMINE HCL 100 MG TABLET (FP) PO SCH ×2 (00:04→23:24)
[2021-08-17] MEDS: chlordiazePOXIDE HCL 25 MG CAPSULE PO SCH (00:04)
[2021-08-17] MEDS: chlordiazePOXIDE HCL 10 MG CAPSULE PO SCH ×4 (05:32→23:24)
[2021-08-17] MEDS: EMTRICITAB/RILPIVIRI/TENOF ALA (ODEFSEY) TABLET PO SCH (10:50)
[2021-08-17] MEDS: ESCITALOPRAM OXALATE 20 MG TABLET PO SCH (10:50)
[2021-08-17] MEDS: METHOCARBAMOL 500 MG TABLET PO PRN (10:50)
[2021-08-17] MEDS: PRENATAL VITAMINS W/ FOLIC ACID TABLET (FP) PO SCH (10:50)
[2021-08-18] MEDS: hydrOXYzine PAMOATE 25 MG CAPSULE (FP) PO SCH ×5 (05:06→22:48)
[2021-08-18] MEDS: chlordiazePOXIDE HCL 10 MG CAPSULE PO SCH ×2 (05:07→18:05)
[2021-08-18] MEDS: ESCITALOPRAM OXALATE 20 MG TABLET PO SCH (10:01)
[2021-08-18] MEDS: EMTRICITAB/RILPIVIRI/TENOF ALA (ODEFSEY) TABLET PO SCH (10:01)
[2021-08-18] MEDS: PRENATAL VITAMINS W/ FOLIC ACID TABLET (FP) PO SCH (10:01)
[2021-08-18] MEDS ORDERED: ROSUVASTATIN CA 20 MG TABLET PO SCH (22:00)
[2021-08-18] MEDS: MELATONIN 5 MG TABLETS PO SCH (22:47)
[2021-08-18] MEDS: THIAMINE HCL 100 MG TABLET (FP) PO SCH (22:48)
[2021-08-19] MEDS ORDERED: chlordiazePOXIDE HCL 10 MG CAPSULE PO ONE (05:00)
[2021-08-19] MEDS: hydrOXYzine PAMOATE 25 MG CAPSULE (FP) PO SCH ×2 (07:24→10:12)
[2021-08-19 09:02] VITALS: BP 117/50; PULSE 81; TEMP 97.9
[2021-08-19] MEDS: ESCITALOPRAM OXALATE 20 MG TABLET PO SCH (10:12)
[2021-08-19] MEDS: PRENATAL VITAMINS W/ FOLIC ACID TABLET (FP) PO SCH (10:12)
[2021-08-19] MEDS: EMTRICITAB/RILPIVIRI/TENOF ALA (ODEFSEY) TABLET PO SCH (10:12)
== END 2021-08-19 11:55 | disposition other institution (70) | DRG 774 ==
LOC: YASAS 10:54 → Y6N 19:29
PROVIDERS: ADMIT Allergy & Immunology; ATTEND Surgery
PROC: HZ2ZZZZ Detoxification Services for Substance Abuse Treatment (ICD-10-PCS; principal; 2021-08-14)
DX: F10.230 Alcohol dependence with withdrawal, uncomplicated (principal); F14.20 Cocaine dependence, uncomplicated; F12.20 Cannabis dependence, uncomplicated; F19.282 Other psychoactive substance dependence with psychoactive substance-induced sleep disorder; F33.2 Major depressive disorder, recurrent severe without psychotic features; Z21 Asymptomatic human immunodeficiency virus [HIV] infection status; J45.909 Unspecified asthma, uncomplicated; K21.9 Gastro-esophageal reflux disease without esophagitis; E66.9 Obesity, unspecified; Z68.41 Body mass index [BMI] 40.0-44.9, adult; Z88.6 Allergy status to analgesic agent; Z91.013 Allergy to seafood; Z91.51 Personal history of suicidal behavior; Z56.0 Unemployment, unspecified
CPT/HCPCS: 36415; 80053; 85027; 86780; 87811; C9803-CS; U0003; U0005

== ENCOUNTER 2021-08-19 11:43 | Inpatient (IN) | payer OTHER ==
[2021-08-19] MEDS ORDERED: MAGNESIUM HYDROX 2400MG/30ML ORAL SUSPENSION 30 ML CUP PO PRN (13:54)
[2021-08-19] MEDS ORDERED: BENZOCAINE/MENTHOL (CHLORASEPTIC ) LOZENGE MM PRN (13:54)
[2021-08-19] MEDS ORDERED: guaiFENesin 200 MG/10 ML 10 ML UNIT-DOSE CUPS PO PRN (13:54)
[2021-08-19] MEDS ORDERED: MAG HYDROX/AL HYDROX/SIMETH 30 ML UNIT-DOSE CUP PO PRN (13:54)
[2021-08-19] MEDS ORDERED: ACETAMINOPHEN 325 MG TABLET (FP) PO PRN (13:54)
[2021-08-19] MEDS ORDERED: LOPERAMIDE HCL 2 MG CAPSULE PO PRN (13:54)
[2021-08-19] MEDS ORDERED: P-EPHED 60MG/TRIPROLIDI 2.5MG TABLET PO PRN (13:54)
[2021-08-19] MEDS ORDERED: NICOTINE 10 MG CARTRIDGE (INHALER) IH PRN (13:54)
[2021-08-19] MEDS ORDERED: MAGNESIUM CITRATE 300 ML BOTTLE PO PRN (13:54)
[2021-08-19] MEDS ORDERED: IBUPROFEN 400 MG TABLET (FP) PO PRN (13:54)
[2021-08-19] MEDS ORDERED: traZODone HCL 50 MG TABLET (FP) PO PRN (13:56)
[2021-08-19] MEDS: MELATONIN 5 MG TABLETS PO SCH (21:41)
[2021-08-19] MEDS: THIAMINE HCL 100 MG TABLET (FP) PO SCH (21:41)
[2021-08-19] MEDS ORDERED: ROSUVASTATIN CA 40 MG TABLET PO SCH (22:00)
[2021-08-20] MEDS ORDERED: ESCITALOPRAM OXALATE 10 MG TABLET ONE (08:29)
[2021-08-20] MEDS: ESCITALOPRAM OXALATE 20 MG TABLET PO SCH (10:12)
[2021-08-20] MEDS: EMTRICITAB/RILPIVIRI/TENOF ALA (ODEFSEY) TABLET PO SCH (10:12)
[2021-08-20] MEDS: PRENATAL VITAMINS W/ FOLIC ACID TABLET (FP) PO SCH (10:12)
[2021-08-20] MEDS: NICOTINE 7 MG/24 HOURS TOPICAL PATCH TD SCH (10:12)
[2021-08-20] MEDS: MELATONIN 5 MG TABLETS PO SCH (21:34)
[2021-08-20] MEDS: THIAMINE HCL 100 MG TABLET (FP) PO SCH (21:34)
[2021-08-20] MEDS: ROSUVASTATIN CA 20 MG TABLET PO SCH (21:36)
[2021-08-21] MEDS ORDERED: ESCITALOPRAM OXALATE 10 MG TABLET ONE (08:56)
[2021-08-21] MEDS: ESCITALOPRAM OXALATE 20 MG TABLET PO SCH (09:50)
[2021-08-21] MEDS: PRENATAL VITAMINS W/ FOLIC ACID TABLET (FP) PO SCH (09:51)
[2021-08-21] MEDS: EMTRICITAB/RILPIVIRI/TENOF ALA (ODEFSEY) TABLET PO SCH (09:51)
[2021-08-21] MEDS: NICOTINE 7 MG/24 HOURS TOPICAL PATCH TD SCH (09:52)
[2021-08-21] MEDS: ROSUVASTATIN CA 20 MG TABLET PO SCH (21:15)
[2021-08-21] MEDS: THIAMINE HCL 100 MG TABLET (FP) PO SCH (21:15)
[2021-08-21] MEDS: MELATONIN 5 MG TABLETS PO SCH (21:15)
[2021-08-22] MEDS: ESCITALOPRAM OXALATE 20 MG TABLET PO SCH (09:43)
[2021-08-22] MEDS: EMTRICITAB/RILPIVIRI/TENOF ALA (ODEFSEY) TABLET PO SCH (09:44)
[2021-08-22] MEDS: PRENATAL VITAMINS W/ FOLIC ACID TABLET (FP) PO SCH (09:44)
[2021-08-22] MEDS: NICOTINE 7 MG/24 HOURS TOPICAL PATCH TD SCH (09:44)
[2021-08-22] MEDS: THIAMINE HCL 100 MG TABLET (FP) PO SCH (21:27)
[2021-08-22] MEDS: MELATONIN 5 MG TABLETS PO SCH (21:27)
[2021-08-22] MEDS: ROSUVASTATIN CA 20 MG TABLET PO SCH (21:28)
[2021-08-23] MEDS ORDERED: ESCITALOPRAM OXALATE 10 MG TABLET ONE (08:21)
[2021-08-23] MEDS: ESCITALOPRAM OXALATE 20 MG TABLET PO SCH (10:07)
[2021-08-23] MEDS: PRENATAL VITAMINS W/ FOLIC ACID TABLET (FP) PO SCH (10:08)
[2021-08-23] MEDS: NICOTINE 7 MG/24 HOURS TOPICAL PATCH TD SCH (10:08)
[2021-08-23] MEDS: EMTRICITAB/RILPIVIRI/TENOF ALA (ODEFSEY) TABLET PO SCH (10:08)
[2021-08-23] MEDS: MELATONIN 5 MG TABLETS PO SCH (21:12)
[2021-08-23] MEDS: THIAMINE HCL 100 MG TABLET (FP) PO SCH (21:12)
[2021-08-23] MEDS: ROSUVASTATIN CA 20 MG TABLET PO SCH (21:13)
[2021-08-24] MEDS ORDERED: ESCITALOPRAM OXALATE 10 MG TABLET ONE (08:42)
[2021-08-24] MEDS: PRENATAL VITAMINS W/ FOLIC ACID TABLET (FP) PO SCH (09:47)
[2021-08-24] MEDS: EMTRICITAB/RILPIVIRI/TENOF ALA (ODEFSEY) TABLET PO SCH (09:47)
[2021-08-24] MEDS: NICOTINE 7 MG/24 HOURS TOPICAL PATCH TD SCH (09:47)
[2021-08-24] MEDS: ESCITALOPRAM OXALATE 20 MG TABLET PO SCH (09:47)
[2021-08-24] MEDS: ROSUVASTATIN CA 20 MG TABLET PO SCH (21:07)
[2021-08-24] MEDS: THIAMINE HCL 100 MG TABLET (FP) PO SCH (21:07)
[2021-08-24] MEDS: MELATONIN 5 MG TABLETS PO SCH (21:07)
[2021-08-25] MEDS ORDERED: ESCITALOPRAM OXALATE 10 MG TABLET ONE (08:59)
[2021-08-25] MEDS: ESCITALOPRAM OXALATE 20 MG TABLET PO SCH (09:43)
[2021-08-25] MEDS: PRENATAL VITAMINS W/ FOLIC ACID TABLET (FP) PO SCH (09:44)
[2021-08-25] MEDS: NICOTINE 7 MG/24 HOURS TOPICAL PATCH TD SCH (09:44)
[2021-08-25] MEDS: EMTRICITAB/RILPIVIRI/TENOF ALA (ODEFSEY) TABLET PO SCH (09:44)
[2021-08-25] MEDS: MELATONIN 5 MG TABLETS PO SCH (21:12)
[2021-08-25] MEDS: ROSUVASTATIN CA 20 MG TABLET PO SCH (21:12)
[2021-08-25] MEDS: THIAMINE HCL 100 MG TABLET (FP) PO SCH (21:12)
[2021-08-26] MEDS: PRENATAL VITAMINS W/ FOLIC ACID TABLET (FP) PO SCH (10:04)
[2021-08-26] MEDS: ESCITALOPRAM OXALATE 20 MG TABLET PO SCH (10:04)
[2021-08-26] MEDS: NICOTINE 7 MG/24 HOURS TOPICAL PATCH TD SCH (10:04)
[2021-08-26] MEDS: EMTRICITAB/RILPIVIRI/TENOF ALA (ODEFSEY) TABLET PO SCH (10:04)
[2021-08-26] MEDS: THIAMINE HCL 100 MG TABLET (FP) PO SCH (21:08)
[2021-08-26] MEDS: MELATONIN 5 MG TABLETS PO SCH (21:08)
[2021-08-26] MEDS: ROSUVASTATIN CA 20 MG TABLET PO SCH (21:08)
[2021-08-27] MEDS: EMTRICITAB/RILPIVIRI/TENOF ALA (ODEFSEY) TABLET PO SCH (10:19)
[2021-08-27] MEDS: ESCITALOPRAM OXALATE 20 MG TABLET PO SCH (10:19)
[2021-08-27] MEDS: NICOTINE 7 MG/24 HOURS TOPICAL PATCH TD SCH (10:19)
[2021-08-27] MEDS: PRENATAL VITAMINS W/ FOLIC ACID TABLET (FP) PO SCH (10:19)
[2021-08-27] MEDS: ROSUVASTATIN CA 20 MG TABLET PO SCH (21:12)
[2021-08-27] MEDS: MELATONIN 5 MG TABLETS PO SCH (21:12)
[2021-08-27] MEDS: ARTIFICIAL TEARS (POLYVINYL ALCOHOL) OPTH DROPS OU PRN (21:13)
[2021-08-27] MEDS: THIAMINE HCL 100 MG TABLET (FP) PO SCH (21:13)
[2021-08-28] MEDS ORDERED: ESCITALOPRAM OXALATE 10 MG TABLET ONE (08:42)
[2021-08-28] MEDS: NICOTINE 7 MG/24 HOURS TOPICAL PATCH TD SCH (09:52)
[2021-08-28] MEDS: EMTRICITAB/RILPIVIRI/TENOF ALA (ODEFSEY) TABLET PO SCH (09:52)
[2021-08-28] MEDS: PRENATAL VITAMINS W/ FOLIC ACID TABLET (FP) PO SCH (09:52)
[2021-08-28] MEDS: ESCITALOPRAM OXALATE 20 MG TABLET PO SCH (09:52)
[2021-08-28] MEDS: ARTIFICIAL TEARS (POLYVINYL ALCOHOL) OPTH DROPS OU PRN (09:53)
[2021-08-28] MEDS: THIAMINE HCL 100 MG TABLET (FP) PO SCH (21:07)
[2021-08-28] MEDS: ROSUVASTATIN CA 20 MG TABLET PO SCH (21:07)
[2021-08-28] MEDS: MELATONIN 5 MG TABLETS PO SCH (21:07)
[2021-08-29] MEDS: ARTIFICIAL TEARS (POLYVINYL ALCOHOL) OPTH DROPS OU PRN ×2 (06:52→21:12)
[2021-08-29] MEDS ORDERED: ESCITALOPRAM OXALATE 10 MG TABLET ONE (08:19)
[2021-08-29] MEDS: PRENATAL VITAMINS W/ FOLIC ACID TABLET (FP) PO SCH (09:50)
[2021-08-29] MEDS: EMTRICITAB/RILPIVIRI/TENOF ALA (ODEFSEY) TABLET PO SCH (09:51)
[2021-08-29] MEDS: ESCITALOPRAM OXALATE 20 MG TABLET PO SCH (09:51)
[2021-08-29] MEDS: NICOTINE 7 MG/24 HOURS TOPICAL PATCH TD SCH (09:51)
[2021-08-29] MEDS: ROSUVASTATIN CA 20 MG TABLET PO SCH (21:11)
[2021-08-29] MEDS: MELATONIN 5 MG TABLETS PO SCH (21:11)
[2021-08-29] MEDS: THIAMINE HCL 100 MG TABLET (FP) PO SCH (21:11)
[2021-08-30] MEDS: EMTRICITAB/RILPIVIRI/TENOF ALA (ODEFSEY) TABLET PO SCH (10:18)
[2021-08-30] MEDS: NICOTINE 7 MG/24 HOURS TOPICAL PATCH TD SCH (10:18)
[2021-08-30] MEDS: ESCITALOPRAM OXALATE 20 MG TABLET PO SCH (10:18)
[2021-08-30] MEDS: PRENATAL VITAMINS W/ FOLIC ACID TABLET (FP) PO SCH (10:18)
[2021-08-30] MEDS: THIAMINE HCL 100 MG TABLET (FP) PO SCH (21:05)
[2021-08-30] MEDS: MELATONIN 5 MG TABLETS PO SCH (21:05)
[2021-08-30] MEDS: ROSUVASTATIN CA 20 MG TABLET PO SCH (21:05)
[2021-08-30] MEDS: TETRAHYDROZOLINE HCL EYE DROPS OU PRN (21:08)
[2021-08-31] MEDS: TETRAHYDROZOLINE HCL EYE DROPS OU PRN (06:17)
[2021-08-31] MEDS: NICOTINE 7 MG/24 HOURS TOPICAL PATCH TD SCH (10:01)
[2021-08-31] MEDS: PRENATAL VITAMINS W/ FOLIC ACID TABLET (FP) PO SCH (10:01)
[2021-08-31] MEDS: EMTRICITAB/RILPIVIRI/TENOF ALA (ODEFSEY) TABLET PO SCH (10:01)
[2021-08-31] MEDS: ESCITALOPRAM OXALATE 20 MG TABLET PO SCH (10:01)
[2021-08-31] MEDS: OFLOXACIN 0.3% OPHTHALMIC SOLUTION 5 ML BOTTLE OD SCH ×4 (10:38→21:09)
[2021-08-31] MEDS: THIAMINE HCL 100 MG TABLET (FP) PO SCH (21:07)
[2021-08-31] MEDS: MELATONIN 5 MG TABLETS PO SCH (21:07)
[2021-08-31] MEDS: hydrOXYzine PAMOATE 25 MG CAPSULE (FP) PO PRN (21:08)
[2021-08-31] MEDS: ROSUVASTATIN CA 20 MG TABLET PO SCH (21:08)
[2021-09-01] MEDS: OFLOXACIN 0.3% OPHTHALMIC SOLUTION 5 ML BOTTLE OD SCH ×5 (06:25→21:10)
[2021-09-01] MEDS: EMTRICITAB/RILPIVIRI/TENOF ALA (ODEFSEY) TABLET PO SCH (10:07)
[2021-09-01] MEDS: ESCITALOPRAM OXALATE 20 MG TABLET PO SCH (10:07)
[2021-09-01] MEDS: PRENATAL VITAMINS W/ FOLIC ACID TABLET (FP) PO SCH (10:07)
[2021-09-01] MEDS: NICOTINE 7 MG/24 HOURS TOPICAL PATCH TD SCH (10:08)
[2021-09-01] MEDS: THIAMINE HCL 100 MG TABLET (FP) PO SCH (21:09)
[2021-09-01] MEDS: ROSUVASTATIN CA 20 MG TABLET PO SCH (21:09)
[2021-09-01] MEDS: MELATONIN 5 MG TABLETS PO SCH (21:09)
[2021-09-02] MEDS: OFLOXACIN 0.3% OPHTHALMIC SOLUTION 5 ML BOTTLE OD SCH ×5 (07:14→21:04)
[2021-09-02] MEDS ORDERED: ESCITALOPRAM OXALATE 10 MG TABLET ONE (08:43)
[2021-09-02] MEDS: PRENATAL VITAMINS W/ FOLIC ACID TABLET (FP) PO SCH (09:50)
[2021-09-02] MEDS: ESCITALOPRAM OXALATE 20 MG TABLET PO SCH (09:51)
[2021-09-02] MEDS: EMTRICITAB/RILPIVIRI/TENOF ALA (ODEFSEY) TABLET PO SCH (09:51)
[2021-09-02] MEDS: NICOTINE 7 MG/24 HOURS TOPICAL PATCH TD SCH (09:51)
[2021-09-02] MEDS: ROSUVASTATIN CA 20 MG TABLET PO SCH (21:03)
[2021-09-02] MEDS: MELATONIN 5 MG TABLETS PO SCH (21:03)
[2021-09-02] MEDS: THIAMINE HCL 100 MG TABLET (FP) PO SCH (21:04)
[2021-09-02] MEDS: hydrOXYzine PAMOATE 25 MG CAPSULE (FP) PO PRN (21:04)
[2021-09-03] MEDS: OFLOXACIN 0.3% OPHTHALMIC SOLUTION 5 ML BOTTLE OD SCH ×5 (06:56→21:10)
[2021-09-03] MEDS: ESCITALOPRAM OXALATE 20 MG TABLET PO SCH (10:35)
[2021-09-03] MEDS: NICOTINE 7 MG/24 HOURS TOPICAL PATCH TD SCH (10:36)
[2021-09-03] MEDS: PRENATAL VITAMINS W/ FOLIC ACID TABLET (FP) PO SCH (10:36)
[2021-09-03] MEDS: EMTRICITAB/RILPIVIRI/TENOF ALA (ODEFSEY) TABLET PO SCH (10:36)
[2021-09-03] MEDS: MELATONIN 5 MG TABLETS PO SCH (21:10)
[2021-09-03] MEDS: THIAMINE HCL 100 MG TABLET (FP) PO SCH (21:10)
[2021-09-03] MEDS: ROSUVASTATIN CA 20 MG TABLET PO SCH (21:11)
[2021-09-04] MEDS: OFLOXACIN 0.3% OPHTHALMIC SOLUTION 5 ML BOTTLE OD SCH ×5 (08:02→21:13)
[2021-09-04] MEDS ORDERED: ESCITALOPRAM OXALATE 10 MG TABLET ONE (09:02)
[2021-09-04] MEDS: PRENATAL VITAMINS W/ FOLIC ACID TABLET (FP) PO SCH (10:25)
[2021-09-04] MEDS: ESCITALOPRAM OXALATE 20 MG TABLET PO SCH (10:26)
[2021-09-04] MEDS: NICOTINE 7 MG/24 HOURS TOPICAL PATCH TD SCH (10:26)
[2021-09-04] MEDS: EMTRICITAB/RILPIVIRI/TENOF ALA (ODEFSEY) TABLET PO SCH (10:28)
[2021-09-04] MEDS: MELATONIN 5 MG TABLETS PO SCH (21:13)
[2021-09-04] MEDS: THIAMINE HCL 100 MG TABLET (FP) PO SCH (21:13)
[2021-09-04] MEDS: ROSUVASTATIN CA 20 MG TABLET PO SCH (21:14)
[2021-09-05] MEDS: OFLOXACIN 0.3% OPHTHALMIC SOLUTION 5 ML BOTTLE OD SCH (08:20)
[2021-09-05] MEDS: ESCITALOPRAM OXALATE 20 MG TABLET PO SCH (10:07)
[2021-09-05] MEDS: EMTRICITAB/RILPIVIRI/TENOF ALA (ODEFSEY) TABLET PO SCH (10:07)
[2021-09-05] MEDS: PRENATAL VITAMINS W/ FOLIC ACID TABLET (FP) PO SCH (10:07)
[2021-09-05] MEDS: NICOTINE 7 MG/24 HOURS TOPICAL PATCH TD SCH (10:08)
[2021-09-05] MEDS: THIAMINE HCL 100 MG TABLET (FP) PO SCH (21:02)
[2021-09-05] MEDS: MELATONIN 5 MG TABLETS PO SCH (21:02)
[2021-09-05] MEDS: ROSUVASTATIN CA 20 MG TABLET PO SCH (21:03)
[2021-09-06] MEDS ORDERED: ESCITALOPRAM OXALATE 10 MG TABLET ONE (08:39)
[2021-09-06] MEDS: NICOTINE 7 MG/24 HOURS TOPICAL PATCH TD SCH (09:46)
[2021-09-06] MEDS: EMTRICITAB/RILPIVIRI/TENOF ALA (ODEFSEY) TABLET PO SCH (09:46)
[2021-09-06] MEDS: PRENATAL VITAMINS W/ FOLIC ACID TABLET (FP) PO SCH (09:46)
[2021-09-06] MEDS: ESCITALOPRAM OXALATE 20 MG TABLET PO SCH (09:46)
[2021-09-06] MEDS: THIAMINE HCL 100 MG TABLET (FP) PO SCH (21:03)
[2021-09-06] MEDS: MELATONIN 5 MG TABLETS PO SCH (21:03)
[2021-09-06] MEDS: ROSUVASTATIN CA 20 MG TABLET PO SCH (21:03)
[2021-09-07] MEDS ORDERED: ESCITALOPRAM OXALATE 10 MG TABLET ONE (08:50)
[2021-09-07] MEDS: EMTRICITAB/RILPIVIRI/TENOF ALA (ODEFSEY) TABLET PO SCH (10:01)
[2021-09-07] MEDS: ESCITALOPRAM OXALATE 20 MG TABLET PO SCH (10:01)
[2021-09-07] MEDS: NICOTINE 7 MG/24 HOURS TOPICAL PATCH TD SCH (10:01)
[2021-09-07] MEDS: PRENATAL VITAMINS W/ FOLIC ACID TABLET (FP) PO SCH (10:02)
[2021-09-07] MEDS: THIAMINE HCL 100 MG TABLET (FP) PO SCH (21:04)
[2021-09-07] MEDS: MELATONIN 5 MG TABLETS PO SCH (21:04)
[2021-09-07] MEDS: ROSUVASTATIN CA 20 MG TABLET PO SCH (21:04)
[2021-09-08] MEDS: ESCITALOPRAM OXALATE 20 MG TABLET PO SCH (09:53)
[2021-09-08] MEDS: NICOTINE 7 MG/24 HOURS TOPICAL PATCH TD SCH (09:54)
[2021-09-08] MEDS: EMTRICITAB/RILPIVIRI/TENOF ALA (ODEFSEY) TABLET PO SCH (09:54)
[2021-09-08] MEDS: PRENATAL VITAMINS W/ FOLIC ACID TABLET (FP) PO SCH (09:54)
[2021-09-08] MEDS: MELATONIN 5 MG TABLETS PO SCH (21:14)
[2021-09-08] MEDS: ROSUVASTATIN CA 20 MG TABLET PO SCH (21:14)
[2021-09-08] MEDS: THIAMINE HCL 100 MG TABLET (FP) PO SCH (21:15)
[2021-09-09 06:37] VITALS: BP 116/75; PULSE 78; TEMP 97.1
[2021-09-09] MEDS ORDERED: ESCITALOPRAM OXALATE 10 MG TABLET ONE (09:04)
[2021-09-09] MEDS: EMTRICITAB/RILPIVIRI/TENOF ALA (ODEFSEY) TABLET PO SCH (09:13)
[2021-09-09] MEDS: ESCITALOPRAM OXALATE 20 MG TABLET PO SCH (09:13)
[2021-09-09] MEDS: NICOTINE 7 MG/24 HOURS TOPICAL PATCH TD SCH (09:13)
[2021-09-09] MEDS: PRENATAL VITAMINS W/ FOLIC ACID TABLET (FP) PO SCH (09:13)
== END 2021-09-09 09:25 | disposition home or self-care (01) | DRG 772 ==
LOC: YASAS 11:43 → Y3E 11:45
PROVIDERS: ADMIT Allergy & Immunology; ATTEND Psychiatry & Neurology Pain Medicine
PROC: HZ42ZZZ Group Counseling for Substance Abuse Treatment, Cognitive-Behavioral (ICD-10-PCS; principal; 2021-08-19)
DX: F10.20 Alcohol dependence, uncomplicated (principal); F14.20 Cocaine dependence, uncomplicated; F15.10 Other stimulant abuse, uncomplicated; F12.20 Cannabis dependence, uncomplicated; F17.210 Nicotine dependence, cigarettes, uncomplicated; F33.1 Major depressive disorder, recurrent, moderate; Z21 Asymptomatic human immunodeficiency virus [HIV] infection status; K21.9 Gastro-esophageal reflux disease without esophagitis; H10.31 Unspecified acute conjunctivitis, right eye; E66.01 Morbid (severe) obesity due to excess calories; Z68.41 Body mass index [BMI] 40.0-44.9, adult; Z88.6 Allergy status to analgesic agent